=== PATIENT | male | born 1955 | race Two or more races ===

== ENCOUNTER 2024-10-28 13:09 | Inpatient (IN) | payer MEDICAID, OTHER ==
[2024-10-28] VITALS (8 sets, daily range): BP systolic 114–128; BP diastolic 69–74; PULSE 79–120; RESP 17–20; TEMP 97.8–99.7; O2SAT 89–97
[~2024-10-28] VITALS: Ht 154.9 cm; Wt 82.2 kg
--- NOTE | 2024-10-28 13:34 | ED.PDOC ---
SOB-HPI HPI Comments HPI: Poor Historian. 68y M who presents to the ED for chief complaint of cough. -per pt family member, pt has been having LLQ rib pain with associated cough for the past 2 days - pt states the cough was non-productive but contained mucus - pt was taken to urgent care earlier this AM and referred to the ED for further evaluation after urgent care staff noted pt has unstable vitals - pt in the ED , has noted temp of 103 F, heart rate of 111, and 88% 02 sat on room air, - pt otherwise denies recent sick contacts Past medical history: HTN, DM past surgical history: hernia Medications: ibuprofen Allergies: nkda Social history: denies ETOH, denies tobacco use, denies drug use REVIEW OF SYSTEMS: CONSTITUTIONAL: Denies acute: diaphoresis, chills, HEAD: Denies acute: headache, photophobia Eyes: Denies acute: Double vision, vision loss, eye pain, eye discharge. EARS: Denies acute: tinnitus, hearing loss, ear discharge, ear pain, THROAT: Denies acute: sore throat, swelling, difficulty swallowing , pain with swallowing, change in voice. NECK: Denies acute: neck pain, neck swelling, stiff neck. HEART: Denies acute : palpitations, LUNGS: Denies acute: wheezing, hemoptysis ABDOMEN: Denies acute: abdominal pain, Nausea, Vomiting, diarrhea, melena , hematemesis, hematochezia SKIN: Denies acute: rash, redness, lesions, itchiness. EXTREMITIES: Denies acute: calf pain, numbness, tingling, weakness, denies pain in extremity. Denies acute: Low back pain. Neuro: Denies acute: focal neurological deficit, motor or sensory focal neurological deficit, tremors, seizure like activity, confusion, dizziness, change in mental status, loss of bowel or bladder function, cauda equina like symptoms. : Denies acute: dysuria, hematuria, flank pain, increase in urinary frequency. PSYCH: Denies acute: hallucination, suicidal ideation, homicidal ideation. PHYSICAL EXAM: General: ----[id number]----acute distress, awake and alert. Head: normocephalic, atraumatic. Neck: supple, trachea is midline, no swelling. Throat: Normal phonation. Eyes:, no erythema, no purulent discharge, no proptosis, no icterus. Heart: regular tachycardic, no significant murmur appreciated. Lungs: no apparent respiratory distress, Able to speak in full sentences. No wheezing, no rhonchi, no crackles. No stridors Clear to auscultation bilaterally. Abdomen: non tender to palpation, non distended, soft, no guarding, no rebound, + bowel sounds. Palpation of the area of painL patient has focal left lower ribcage at the mid axillary line region tenderness to palpation. No history of fall or trauma. Neuro: Awake, Alert, oriented to name, self, situation, follows commands GCS=15. Speech is normal. Skin: no petechia, no purpura, no cyanosis, non-pale, not jaundice. Lower extremities: --no - Pitting edema no deformity, no focal swelling, no calf TTP. Makes eye contact. moves all four extremities. Face: no apparent facial droop. Ambulating in the ED independently. ED COURSE: Chief Complaint: Cough Time Seen by MD: 13:15 Reviewed notes: Nurses Notes, Allergies Information Source: Patient, Relative Mode of Arrival: Ambulatory Brought in by: family member Was a procedure done? Was a procedure done?: No Differential Dx Differential Diagnosis: Other (DDx include ACS, unstable angina, anxiety, PE, pneumothroax, neoplasm, cardiac ischemia, COPD, asthma, CHF, pleural effusion, tobacco abuse, pneumonia, hypoxia, hypercapnia, anemia., infection/sepsis., pulmonary edema. Asthma, Cardiac tamponade, infection.) X-Ray, Labs, Meds, VS Vital Signs Date Time Temp Pulse Resp B/P (MAP) Pulse Ox O2 Delivery O2 Flow Rate FiO2 10/28/24 14:24 Nasal Cannula* 2 28 10/28/24 13:49 24 94 Room Air* 0 21 10/28/24 13:40 101.3 10/28/24 13:31 117 10/28/24 13:15 101.3 111 24 118/77 (91) 88 101.3 Lab Test 10/28/24 13:41 10/28/24 13:29 10/28/24 13:26 Range/Units White Blood Count 16.0 H 4.4-10.8 10^3/uL Red Blood Count 5.58 4.5-5.90 10^6/uL Hemoglobin 16.5 13.5-17.5 g/dL Hematocrit 50.8 41.0-53.0 % Mean Corpuscular Volume 91.1 80.0-100.0 fL Mean Corpuscular Hemoglobin 29.5 28.0-32.0 pg Mean Corpuscular Hemoglobin Concent 32.4 32.0-36.0 g/dL Red Cell Distribution Width 14.6 H 11.8-14.3 % Platelet Count 174 140-450 10^3/uL Mean Platelet Volume 7.9 6.9-10.8 fL Neutrophils (%) (Auto) 87.6 H 37.0-80.0 % Lymphocytes (%) (Auto) 6.4 L 10.0-50.0 % Monocytes (%) (Auto) 5.7 0.0-12.0 % Eosinophils (%) (Auto) 0.1 0.0-7.0 % Basophils (%) (Auto) 0.2 0.0-2.0 % Neutrophils # (Auto) 14.0 H 1.6-8.6 10 ^3/uL Lymphocytes # (Auto) 1.0 0.4-5.4 10 ^3/uL Monocytes # (Auto) 0.9 0-1.3 10 ^3/uL Eosinophils # (Auto) 0 0-0.8 10 ^3/uL Basophils # (Auto) 0 0-0.2 10 ^3/uL Nucleated Red Blood Cells 0.1 % Sodium Level 134 L 136-145 mmol/L Potassium Level 4.6 3.5-5.1 mmol/L Chloride Level 103 98-107 mmol/L Carbon Dioxide Level 21 20-31 mmol/L Anion Gap 10 5-15 Blood Urea Nitrogen 36 H 9-23 mg/dL Creatinine 2.62 H 0.700-1.30 mg/dL Glomerular Filtration Rate Calc 25 >90 mL/min BUN/Creatinine Ratio 13.7 10.0-20.0 Serum Glucose 429 *H 74-106 mg/dL Lactic Acid Level 2.2 *H 0.4-2.0 mmol/L Calcium Level 9.1 8.7-10.4 mg/dL Magnesium Level 2.0 1.6-2.6 mg/dL Total Bilirubin 1.0 0.2-1.0 mg/dL Aspartate Amino Transferase (AST) 24 13-40 U/L Alanine Aminotransferase (ALT) 39 7-40 U/L Alkaline Phosphatase 93 46-116 U/L Troponin I High Sensitivity 5 </=54 ng/L B-Type Natriuretic Peptide 78.55 0-100 pg/mL Total Protein 7.1 5.7-8.2 g/dL Albumin 4.2 3.2-4.8 g/dL Urine Color Light-yellow Yellow Urine Clarity Clear Clear Urine pH 5.5 5.0-9.0 Urine Specific [place] 1.014 1.001-1.035 Urine Protein Trace H Negative Urine Ketones Negative Negative Urine Blood Trace H Negative /uL Urine Nitrite Negative Negative Urine Bilirubin Negative Negative Urine Urobilinogen Normal Negative mg/dL Urine Leukocyte Esterase Negative Negative /uL Urine RBC 1 0 - 3 /hpf Urine Microscopic WBC < 1 0-3 /HPF Urine Squamous Epithelial Cells None seen <5 /hpf Urine Bacteria Few H None Seen /hpf Urine Glucose 4+ H Normal mg/dL Influenza Type A Antigen Negative Negative Influenza Type B Antigen Negative Negative SARS-CoV-2 Antigen (Rapid) Negative NEGATIVE Current Medications Medications (Trade) Dose Ordered Sig/Roxann Route Start Time Stop Time Status Last Admin Acetaminophen (Tylenol Tablet) 650 mg ONCE ONCE PO 10/28/24 13:30 10/28/24 13:31 DC 10/28/24 13:40 Albuterol (Ventolin Medneb) 2.5 mg ONCE ONCE NEB 10/28/24 13:45 10/28/24 13:46 DC 10/28/24 13:48 Ipratropium [place] (Atrovent Medneb) 1 mg ONCE ONCE NEB 10/28/24 13:45 10/28/24 13:46 DC 10/28/24 13:[address] [address] Ph: [phone] DIAGNOSTIC IMAGING Diagnostic Imaging Report : [id number] Signed PATIENT: SO GRUBBST: [id number] UNIT: [id number] : 1955 LOC: ER ROOM / BED: / AGE / SEX: 68 / M ADM STATUS: REG ER SERVICE 1324 ORDERING PHYSICIAN: DIAZ RITTER DO PROCEDURE(s): CXRP - CHEST PORTABLE REASON: sob/fever/cough/congestion ORDER NUMBER(s): [id number], ACCESSION NUMBER(s): [id number] CHEST RADIOGRAPH Indication: sob/fever/cough/congestion Technique: Single frontal view of the chest was obtained COMPARISON: None FINDINGS: Lines and Tubes: None Lungs: Patchy hazy opacity noted in the right mid lung and left lung base. Pleura: No effusion. No pneumothorax. Cardiomediastinal contours: Unremarkable Bones: Unremarkable IMPRESSION: Mild patchy right midlung and left basilar opacities are concerning for pneum onia. ATED BY: MIMI CLINTON DO DICTATED DATE/TIME: 10/28/241403 SIGNED BY: MIMI CLINTON DO SIGNED DATE/TIME: 10/28/241403 CC: Time of 1ST Reevaluation: 14:44 Reevaluation 1ST: Improved Patient Education/Counseling: Diagnosis, Treatment Family Education/Counseling: Diagnosis, Treatment Comments Patient presented with the above HPI.---respiratory complaints---workup was initiated. patient was found with the above mentioned diagnosis. the following medications were ordered: please refer to order lists of meds and tests obtained by myself Dr. Ritter. Patient ED course and VS have been stabilized. Patient has been reassessed in the ED and remained in a stable condition. Pertinent incidental findings were discussed with the patient and/or family. Patient/family voices understanding and is agreeable with plan. Patient has been observed in the ED adequate length of time to insure improvement/stability. Escalation of care considered: Consideration of escalation to observation or admission Sepsis protocol was initiated. Patient was placed on supplemental oxygen. Patient was ADMITTED to the medicine team for further evaluation and treatment of their presentation. All the reports of any imaging studies that were ordered by myself were reviewed by myself. Departure 1 Departure Time of Disposition: 14:37 Impression: Primary Impression: Hypoxemia Additional Impressions: Respiratory distress Leukocytosis Sepsis Pneumonia Uncontrolled diabetes mellitus Hyperglycemia due to diabetes mellitus Disposition: ADMITTED INPATIENT Admit to: [facility] Condition: Guarded Discharged With: Self Critical Care Note Critical Care Time?: Yes (45 min-critical care time only) Heart Score Heart Score: Heart Score Response (Comments) Value History Slightly Suspicious 0 EKG Normal 0 Age >65 2 Risk Factors 1 or 2 risk factors 1 Troponin Normal limit 0 Total 3 I personally scribed for DIAZ RITTER DO ([email or web address]) on 10/28/24 at 13:34. Electronically submitted by Esperanza Contreras ([facility]). I personally scribed for DIAZ RITTER DO ([email or web address]) on 10/28/24 at 13:54. Electronically submitted by Esperanza Contreras ([facility] I personally scribed for DIAZ RITTER DO ([email or web address]) on 10/28/24 at 14:07. Electronically submitted by Esperanza Contreras ([facility]). DIAZ RITTER DO Oct 28, 2024 13:34
[2024-10-28] MEDS: ACETAMINOPHEN 325 MG TAB PO ONE (13:40)
[2024-10-28] MEDS: ALBUTEROL SULF 2.5 MG/0.5ML(0.5%) NEB SOLN NEB ONE (13:48)
[2024-10-28] MEDS: IPRATROPIUM BROM 0.5 MG/2.5ML INH SOL NEB ONE (13:48)
--- NOTE | 2024-10-28 13:59 | ECG ---
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
--- NOTE | 2024-10-28 14:06 | DVH ---
CHEST RADIOGRAPH Indication: sob/fever/cough/congestion Technique: Single frontal view of the chest was obtained COMPARISON: None FINDINGS: Lines and Tubes: None Lungs: Patchy hazy opacity noted in the right mid lung and left lung base. Pleura: No effusion. No pneumothorax. Cardiomediastinal contours: Unremarkable Bones: Unremarkable IMPRESSION: Mild patchy right midlung and left basilar opacities are concerning for pneumonia.
[2024-10-28 14:17] LABS: Rapid Influenza A Negative (Negative); Rapid Influenza B Negative (Negative)
[2024-10-28 14:18] LABS: COVID19 ANTIGEN SOFIA FIA NEGATIVE (NEGATIVE)
[2024-10-28 14:20] LABS: Basophils # (auto) 0 10 ^3/uL (0-0.2); Basophils % (auto) 0.2 % (0.0-2.0); Eosinophils # (auto) 0 10 ^3/uL (0-0.8); Eosinophils % (auto) 0.1 % (0.0-7.0); Hematocrit 50.8 % (41.0-53.0); Hemoglobin 16.5 g/dL (13.5-17.5); Lymphocytes % (auto) 6.4 % (10.0-50.0); Mean Corpuscular Hemoglobin 29.5 pg (28.0-32.0); Mean Corpuscular Hgb Conc. 32.4 g/dL (32.0-36.0); Mean Corpuscular Volume 91.1 fL (80.0-100.0); Monocytes # (auto) 0.9 10 ^3/uL (0-1.3); Monocytes % (auto) 5.7 % (0.0-12.0); Neutrophils % (auto) 87.6 % (37.0-80.0); Nucleated Red Blood Cells % 0.1 %; Platelet Count (auto) 174 10^3/uL (140-450); Red Blood Cells 5.58 10^6/uL (4.5-5.90); Red Cell Distribution Width 14.6 % (11.8-14.3)
[2024-10-28 14:27] LABS: Urine Bacteria FEW /hpf (None Seen); Urine Blood TRACE /uL (Negative); Urine Clarity Clear (Clear); Urine Color Light-Yellow (Yellow); Urine Protein, UAD TRACE (Negative); Urine Specific Gravity 1.014 (1.001-1.035); Urine Squamous Epithelial Cell None Seen /hpf (<5); Urine Urobilinogen Normal (Negative); Urine WBC < 1 /HPF (0-3); Urine pH 5.5 (5.0-9.0)
[2024-10-28 14:38] LABS: Alanine Aminotransferase 39 U/L (7-40); Albumin 4.2 g/dL (3.2-4.8); Alkaline Phosphatase 93 U/L (46-116); Anion Gap 10 (5-15); Aspartate Aminotransferase 24 U/L (13-40); BUN/Creatinine Ratio 13.7 (10.0-20.0); Calcium 9.1 mg/dL (8.7-10.4); Carbon Dioxide 21 mmol/L (20-31); Chloride 103 mmol/L (98-107); Potassium 4.6 mmol/L (3.5-5.1); Total Protein 7.1 g/dL (5.7-8.2)
[2024-10-28 14:46] LABS: Blood Urea Nitrogen 36 mg/dL (9-23); Glucose 429 mg/dL (74-106); Lactic Acid w/Reflex 2.2 mmol/L (0.4-2.0); Sodium 134 mmol/L (136-145)
[2024-10-28] MEDS: SODIUM CHLORIDE 0.9% 1,000 ML IV ONE ×2 (14:55)
[2024-10-28] MEDS: cefTRIAXone 1GM/50ML D5W 50 ML IV ONE (15:00)
[2024-10-28] MEDS ORDERED: ONDANSETRON HCL 4 MG/2 ML VIAL IV PRN (15:15)
[2024-10-28] MEDS ORDERED: ACETAMINOPHEN 325 MG TAB PO PRN (15:15)
[2024-10-28] MEDS ORDERED: DEXTROSE (50%) 50ML SYRG IV PRN (15:15)
--- NOTE | 2024-10-28 15:26 | DVHHP2 ---
History of Present Illness Reason for Visit: Cough and left rib pain History of Present Illness Akin Lerma is a 68-year-old male with past medical history of hypertension, diabetes, and hernia repair who presents to the ED with cough and left rib pain x3 days. Son Joe is at the bedside states that the patient just came here from [place] about a week ago. He also states that his father has a wet cough but with no sputum production. Also reports that he went to the urgent care and because of his abnormal vitals was advised to go to the ED. Patient denies any chest pain, hemoptysis, hematemesis, shortness of breath, fever, chills, lightheadedness, weakness, dizziness, nausea, abdominal pain, vomiting, or diarrhea. Patient's son does report that he has frequency to go void with no dysuria, urgency or hematuria. Patient also reports that he does not use oxygen at home however upon examination patient is currently on 5 L nasal cannula. Cardiovascular: HTN Endocrine: Diabetes Past Surgical History: Hernia Repair Family History: None Smoke: No ALCOHOL: none Drugs: None Lives: with Family Domestic Violence: Neg Review of Systems Respiratory: Cough, Other (Left rib pain) Genitourinary: Frequency Allergies: Coded Allergies: NO KNOWN ALLERGIES (Unverified , 10/28/24) Exam Vital Signs Vital Signs Date Time Temp Pulse Resp B/P (MAP) Pulse Ox O2 Delivery O2 Flow Rate FiO2 10/28/24 15:01 99.7 10/28/24 14:24 Nasal Cannula* 2 28 10/28/24 14:00 120 35 128/72 (90) 88 General Appearance: Alert, Oriented X3, Cooperative, No acute distress HEENT: Atraumatic, PERRLA, EOMI, Mucous membr. moist/pink Respiratory: Normal air movement Cardiovascular: Normal S1, Normal S2, No murmurs Abdominal: Normal bowel sounds, Soft, No tenderness, No hepatospenomegaly, No m asses Extremities: No clubbing, No cyanosis, Normal pulses Skin: No significant lesion Neuro: Normal speech, Normal tone, Sensation intact Psych/Mental Status: Mental status NL, Mood NL Labs/Xrays Labs Test 10/28/24 14:52 10/28/24 13:41 10/28/24 13:29 10/28/24 13:26 Range/Units White Blood Count 16.0 H 4.4-10.8 10^3/uL Red Blood Count 5.58 4.5-5.90 10^6/uL Hemoglobin 16.5 13.5-17.5 g/dL Hematocrit 50.8 41.0-53.0 % Mean Corpuscular Volume 91.1 80.0-100.0 fL Mean Corpuscular Hemoglobin 29.5 28.0-32.0 pg Mean Corpuscular Hemoglobin Concent 32.4 32.0-36.0 g/dL Red Cell Distribution Width 14.6 H 11.8-14.3 % Platelet Count 174 140-450 10^3/uL Mean Platelet Volume 7.9 6.9-10.8 fL Neutrophils (%) (Auto) 87.6 H 37.0-80.0 % Lymphocytes (%) (Auto) 6.4 L 10.0-50.0 % Monocytes (%) (Auto) 5.7 0.0-12.0 % Eosinophils (%) (Auto) 0.1 0.0-7.0 % Basophils (%) (Auto) 0.2 0.0-2.0 % Neutrophils # (Auto) 14.0 H 1.6-8.6 10 ^3/uL Lymphocytes # (Auto) 1.0 0.4-5.4 10 ^3/uL Monocytes # (Auto) 0.9 0-1.3 10 ^3/uL Eosinophils # (Auto) 0 0-0.8 10 ^3/uL Basophils # (Auto) 0 0-0.2 10 ^3/uL Nucleated Red Blood Cells 0.1 % Sodium Level 134 L 136-145 mmol/L Potassium Level 4.6 3.5-5.1 mmol/L Chloride Level 103 98-107 mmol/L Carbon Dioxide Level 21 20-31 mmol/L Anion Gap 10 5-15 Blood Urea Nitrogen 36 H 9-23 mg/dL Creatinine 2.62 H 0.700-1.30 mg/dL Glomerular Filtration Rate Calc 25 >90 mL/min BUN/Creatinine Ratio 13.7 10.0-20.0 Serum Glucose 429 *H 74-106 mg/dL Lactic Acid Level 2.2 *H 0.4-2.0 mmol/L Calcium Level 9.1 8.7-10.4 mg/dL Magnesium Level 2.0 1.6-2.6 mg/dL Total Bilirubin 1.0 0.2-1.0 mg/dL Aspartate Amino Transferase (AST) 24 13-40 U/L Alanine Aminotransferase (ALT) 39 7-40 U/L Alkaline Phosphatase 93 46-116 U/L B-Type Natriuretic Peptide 78.55 0-100 pg/mL Total Protein 7.1 5.7-8.2 g/dL Albumin 4.2 3.2-4.8 g/dL Urine Color Light-yellow Yellow Urine Clarity Clear Clear Urine pH 5.5 5.0-9.0 Urine Specific [place] 1.014 1.001-1.035 Urine Protein Trace H Negative Urine Ketones Negative Negative Urine Blood Trace H Negative /uL Urine Nitrite Negative Negative Urine Bilirubin Negative Negative Urine Urobilinogen Normal Negative mg/dL Urine Leukocyte Esterase Negative Negative /uL Urine RBC 1 0 - 3 /hpf Urine Microscopic WBC < 1 0-3 /HPF Urine Squamous Epithelial Cells None seen <5 /hpf Urine Bacteria Few H None Seen /hpf Urine Glucose 4+ H Normal mg/dL Influenza Type A Antigen Negative Negative Influenza Type B Antigen Negative Negative SARS-CoV-2 Antigen (Rapid) Negative NEGATIVE CHEST RADIOGRAPH Indication: sob/fever/cough/congestion Technique: Single frontal view of the chest was obtained COMPARISON: None FINDINGS: Lines and Tubes: None Lungs: Patchy hazy opacity noted in the right mid lung and left lung base. Pleura: No effusion. No pneumothorax. Cardiomediastinal contours: Unremarkable Bones: Unremarkable IMPRESSION: Mild patchy right midlung and left basilar opacities are concerning for pneumonia. Assessment/Plan Assessment/Plan Assessment Acute hypoxic respiratory failure Pneumonia with probable sepsis Leukocytosis likely due to pneumonia Pyrexia Sinus tachycardia ZEINA Diabetes type 2 uncontrolled Obesity History of hypertension Plan Admit to tele Chest x-ray noted UA NS 2 L given ED IV antibiotics-ceftriaxone Duo nebs Antiemetics EKG Troponin Blood cultures Flu negative COVID negative Mag level Lactic level BNP Hemoglobin A1c ISS and Accu-Cheks Sputum culture DVT prophylaxis-Lovenox PUD prophylaxis-famotidine, patient on series Patient's son will bring medications or list to have it reconciled Discussed plan of care with patient, patient's son, and nurse Nephro consult Counseled patient on lifestyle modifications, diet, and exercise Plan discussed with: Patient, Son My Orders Orders - KIT [employer] Procedure Category Date Status Time Ceftriaxone Ivpb PHA 10/29/24 Verified Rocephin 09:00 NS PHA 10/28/24 Verified 15:15 *[facility] CONS 10/28/24 Verified -[place] 15:01 Admit ADMIT 10/28/24 Verified 15:01 Allergies ROBERTO CARLOS 10/28/24 Verified 15:01 Code Status CODE 10/28/24 Verified 15:01 Hydrocodone-Acet PHA 10/28/24 Verified 5/325mg Tab ([place] 15:15 Date of Service: Oct 28, 2024 Billing Provider: KIT ESCOBAR Common Visit Codes: [id number] INP/OBS CARE (HIGH) KIT [employer] COUNSELOR Oct 28, 2024 15:26
[2024-10-28] MEDS ORDERED: ALBUTEROL SULF 2.5 MG/0.5ML(0.5%) NEB SOLN NEB PRN (15:30)
[2024-10-28] MEDS ORDERED: IPRATROPIUM BROM 0.5 MG/2.5ML INH SOL NEB PRN (15:30)
[2024-10-28] MEDS: SODIUM CHLORIDE 0.9% 1,000 ML IV SCH (15:40)
[2024-10-28] MEDS: ENOXAPARIN SOD 30 MG/0.3 ML SYRINGE SC ONE (15:43)
[2024-10-28] MEDS: HYDROcodone-ACET 5/325MG TAB PO PRN (16:01)
[2024-10-28] MEDS: ACCU-CHEK COMFORT CURVE STRIP VI SCH (16:47)
[2024-10-28] MEDS: InsuLIN REG 1unit/0.01ml Soln (100units/ml) SC SCH (16:47)
[2024-10-28] MEDS: ALBUTEROL SULF 2.5 MG/0.5ML(0.5%) NEB SOLN NEB SCH (19:10)
[2024-10-28] MEDS: IPRATROPIUM BROM 0.5 MG/2.5ML INH SOL NEB SCH (19:10)
[2024-10-28] MEDS ORDERED: AMLO1TAB22 PO (19:43)
[2024-10-28] MEDS ORDERED: LOSA-535 PO (19:43)
[2024-10-28] MEDS ORDERED: METF-370 PO (19:43)
[2024-10-28] MEDS: methylPREDNISolone SOD SUCC 40 MG/ML VL IV SCH (22:16)
[2024-10-29] VITALS (14 sets, daily range): BP systolic 115–137; BP diastolic 72–79; PULSE 61–113; RESP 17–19; TEMP 97.7–98.6; O2SAT 93–100
[2024-10-29 06:11] LABS: Basophils # (auto) 0.1 10 ^3/uL (0-0.2); Basophils % (auto) 0.4 % (0.0-2.0); Eosinophils # (auto) 0 10 ^3/uL (0-0.8); Hematocrit 44.9 % (41.0-53.0); Hemoglobin 14.7 g/dL (13.5-17.5); Lymphocytes # (auto) 0.6 10 ^3/uL (0.4-5.4); Lymphocytes % (auto) 3.7 % (10.0-50.0); Mean Corpuscular Hgb Conc. 32.7 g/dL (32.0-36.0); Mean Corpuscular Volume 91.9 fL (80.0-100.0); Monocytes # (auto) 0.7 10 ^3/uL (0-1.3); Monocytes % (auto) 4.5 % (0.0-12.0); Neutrophils # (auto) 14.6 10 ^3/uL (1.6-8.6); Neutrophils % (auto) 91.4 % (37.0-80.0); Platelet Count (auto) 181 10^3/uL (140-450); Red Blood Cells 4.88 10^6/uL (4.5-5.90); Red Cell Distribution Width 14.6 % (11.8-14.3); White Blood Cell 15.9 10^3/uL (4.4-10.8)
[2024-10-29 06:37] LABS: Alanine Aminotransferase 27 U/L (7-40); Albumin 3.8 g/dL (3.2-4.8); Alkaline Phosphatase 100 U/L (46-116); Anion Gap 10 (5-15); Aspartate Aminotransferase 18 U/L (13-40); BUN/Creatinine Ratio 12.8 (10.0-20.0); Bilirubin, Total 0.5 mg/dL (0.2-1.0); Calcium 8.8 mg/dL (8.7-10.4); Sodium 136 mmol/L (136-145); Total Protein 6.8 g/dL (5.7-8.2)
[2024-10-29 06:38] LABS: Blood Urea Nitrogen 28 mg/dL (9-23); Carbon Dioxide 19 mmol/L (20-31); Chloride 107 mmol/L (98-107); Glucose 358 mg/dL (74-106); Potassium 5.1 mmol/L (3.5-5.1)
[2024-10-29] MEDS: cefTRIAXone 1GM/50ML D5W 50 ML IV SCH (08:29)
[2024-10-29] MEDS: ENOXAPARIN SOD 30 MG/0.3 ML SYRINGE SC SCH (10:31)
[2024-10-29] MEDS: FAMOTIDINE (10MG/ML) 2ML VL IV SCH (10:32)
--- NOTE | 2024-10-29 14:58 | DVHPN2 ---
Subjective Some cough. Feels better Reviewed: Care Plan, H&P, Labs, Medications, Previous Orders, Radiology Changes from previous H/P or p: No Changes Respiratory: Cough Objective Vitals Vital Signs Date Time Temp Pulse Resp B/P (MAP) Pulse Ox O2 Delivery O2 Flow Rate FiO2 10/29/24 12:40 98.1 88 19 122/72 (89) 95 98.1 10/29/24 10:22 Nasal Cannula 4.0 10/29/24 10:22 36 Intake/Output Intake and Output 10/29/24 07:00 Intake Total 3450 ml Balance 3450 ml Intake Oral 1200 ml IV Total 2250 ml # Voids 3 General Appearance: Alert, Oriented X3, Cooperative, No acute distress HEENT: Atraumatic Lungs: Other (Few crackles bilateral lungs with good air entry) Cardiovascular: Regular rate Abdomen: Normal bowel sounds, Soft, No tenderness Medications Current Medications Medications Dose Ordered Sig/Roxann Route Start Time Stop Time Status Last Admin Dose Admin Ceftriaxone Sodium 50 ml @ 100 mls/hr DAILY@09 IV 10/29/24 09:00 10/29/24 08:29 100 MLS/HR Sodium Chloride 1,000 ml @ 100 mls/hr Q10H IV 10/28/24 15:15 10/29/24 10:31 100 MLS/HR Acetaminophen/ Hydrocodone Bitart 1 tab Q4HP PRN PO 10/28/24 15:15 10/28/24 20:06 1 TAB Ondansetron HCl 4 mg Q4HP PRN IV 10/28/24 15:15 Enoxaparin Sodium 30 mg DAILY SC 10/29/24 10:00 10/29/24 10:31 30 MG Acetaminophen 650 mg Q6HP PRN PO 10/28/24 15:15 Diagnostic Test (Pha) 1 strip ACHS 10/28/24 17:00 10/29/24 11:54 1 STRIP Insulin Human Regular ACHS SC 10/28/24 17:00 10/29/24 11:58 10 UNITS Dextrose 50 ml UD PRN IV 10/28/24 15:15 Albuterol 2.5 mg Q4HWA NEB 10/28/24 18:00 10/28/24 22:23 2.5 MG Albuterol 2.5 mg Q2HPRN PRN NEB 10/28/24 15:30 Ipratropium [place] 0.5 mg Q4HWA NEB 10/28/24 18:00 10/28/24 22:23 0.5 MG Ipratropium [place] 0.5 mg Q2HPRN PRN NEB 10/28/24 15:30 Methylprednisolone Sodium Succinate 40 mg Q8HR IV 10/28/24 22:00 10/29/24 14:39 40 MG Famotidine 20 mg DAILY IV 10/29/24 10:00 10/29/24 10:32 20 MG Laboratory Results Laboratory Tests 10/29/24 05:28 Chemistry Test 10/29/24 05:28 Albumin 3.8 g/dL (3.2-4.8) Calcium Level 8.8 mg/dL (8.7-10.4) Total Protein 6.8 g/dL (5.7-8.2) LFT Test 10/29/24 05:28 Alanine Aminotransferase (ALT) 27 U/L (7-40) Alkaline Phosphatase 100 U/L (46-116) Aspartate Amino Transferase (AST) 18 U/L (13-40) Total Bilirubin 0.5 mg/dL (0.2-1.0) Urinalysis Test 10/28/24 13:29 Urine Color Light-yellow (Yellow) Urine Clarity Clear (Clear) Urine pH 5.5 (5.0-9.0) Urine Specific [place] 1.014 (1.001-1.035) Urine Protein Trace (Negative) H Urine Ketones Negative (Negative) Urine Blood Trace /uL (Negative) H Urine Nitrite Negative (Negative) Urine Bilirubin Negative (Negative) Urine Urobilinogen Normal mg/dL (Negative) Urine Leukocyte Esterase Negative /uL (Negative) Urine RBC 1 /hpf (0 - 3) Urine Microscopic WBC < 1 /HPF (0-3) Urine Squamous Epithelial Cells None seen /hpf (<5) Urine Bacteria Few /hpf (None Seen) H Urine Glucose 4+ mg/dL (Normal) H Microbiology Microbiology Date/Time Source Procedure Growth Status 10/28/24 13:47 Blood Blood Culture - Preliminary NO GROWTH AFTER 24 HOURS OF INCUBATION. Resulted Assessment/Plan Assessment/Plan Bilateral pneumonia Leukocytosis sepsis and possible bacteremia with with sepsis/blood culture growing Gram-positive cocci in clusters Hyperglycemia Diabetes/uncontrolled Hypertension Acute kidney injury atop chronic kidney disease Morbid obesity History of hernia repair Plan: Add Zyvox. Awaiting culture. Repeat culture. Further plan per orders Plan discussed with: Patient Date of Service: Oct 29, 2024 Billing Provider: HANNAH YAO MD Common Visit Codes: [id number] INP/OBS CARE(HIGH) HANNAH YAO MD Oct 29, 2024 14:58
[2024-10-29] MEDS: LINEZOLID 600MG/300ML 300 ML IV SCH (16:32)
--- NOTE | 2024-10-29 16:33 | DVHINCON2 ---
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 Denies knowing Chronic kidney disease history Patient is currently being treated for pneumonia Past Medical History As per HPI Past Surgical History As per HPI Allergies: Coded Allergies: NO KNOWN ALLERGIES (Unverified , 10/28/24) Home Meds Reported Medications Amlodipine Besylate (Amlodipine Besylate) 5 Mg Tab, 5 MG PO BID for BLOOD PRESSURE, TAB 10/28/24 Losartan Potassium (Losartan Potassium) 100 Mg Tab, 100 MG PO BID for BLOOD PRESSURE, TAB 10/28/24 Metformin Hydrochloride (Metformin Hcl) 500 Mg Tab, 500 MG PO DAILY for DIABETES, TAB 10/28/24 Current Medications Current Medications Medications (Trade) Dose Ordered Sig/Roxann Route PRN Reason Start Time Stop Time Status Last Admin Ceftriaxone Sodium 50 ml @ 100 mls/hr DAILY@09 IV 10/29/24 09:00 10/29/24 08:29 Enoxaparin Sodium (Lovenox) 30 mg DAILY SC 10/29/24 10:00 10/29/24 10:31 Diagnostic Test (Pha) (Accu-Chek Comfort Curve T) 1 strip ACHS 10/28/24 17:00 10/29/24 11:54 Insulin Human Regular (InsuLIN R) ACHS SC 10/28/24 17:00 10/29/24 11:58 Albuterol (Ventolin Medneb) 2.5 mg Q4HWA NEB 10/28/24 18:00 10/28/24 22:23 Ipratropium [place] (Atrovent Medneb) 0.5 mg Q4HWA NEB 10/28/24 18:00 10/28/24 22:23 Methylprednisolone Sodium Succinate (Solu Medrol) 40 mg Q8HR IV 10/28/24 22:00 10/29/24 14:39 Famotidine (Pepcid Injection) 20 mg DAILY IV 10/29/24 10:00 10/29/24 10:32 Linezolid 300 ml @ 150 mls/hr Q12HR IV 10/29/24 15:00 Family History: Patient reports no known family medical history. Review of Systems As documented in HPI H&P Exam Vital Signs/I&O Vital Sign Date Time Temp Pulse Resp B/P (MAP) Pulse Ox O2 Delivery O2 Flow Rate FiO2 10/29/24 12:40 98.1 88 19 122/72 (89) 95 98.1 10/29/24 10:22 Nasal Cannula 4.0 10/29/24 10:22 36 Intake and Output 10/28/24 10/29/24 19:00 07:00 Intake Total 2250 ml 1200 ml Balance 2250 ml 1200 ml Intake Oral 1200 ml IV Total 2250 ml # Voids 3 Physical Exam General-not in any distress HEENT-normocephalic, no icterus, no pallor, neck supple Respiratory-fair air entry bilateral, [id number] heard, no murmurs appreciated Abdominal-soft, nontender, nondistended Musculoskeletal-no pedal edema, no calf tenderness Genitourinary-deferred Neuro-awake alert oriented x3, Psychiatric-not agitated, cooperative, Labs/Diagnostic Data Labs/Diagnostic Data Laboratory Tests Test 10/29/24 11:44 10/29/24 06:42 10/29/24 05:42 10/29/24 05:28 Range/Units POC Glucose 377 H 365 H 381 H 70-106 mg/dl White Blood Count 15.9 H 4.4-10.8 10^3/uL Red Blood Count 4.88 4.5-5.90 10^6/uL Hemoglobin 14.7 13.5-17.5 g/dL Hematocrit 44.9 # 41.0-53.0 % Mean Corpuscular Volume 91.9 80.0-100.0 fL Mean Corpuscular Hemoglobin 30.0 28.0-32.0 pg Mean Corpuscular Hemoglobin Concent 32.7 32.0-36.0 g/dL Red Cell Distribution Width 14.6 H 11.8-14.3 % Platelet Count 181 140-450 10^3/uL Mean Platelet Volume 7.9 6.9-10.8 fL Neutrophils (%) (Auto) 91.4 H 37.0-80.0 % Lymphocytes (%) (Auto) 3.7 L 10.0-50.0 % Monocytes (%) (Auto) 4.5 0.0-12.0 % Eosinophils (%) (Auto) 0.0 0.0-7.0 % Basophils (%) (Auto) 0.4 0.0-2.0 % Neutrophils # (Auto) 14.6 H 1.6-8.6 10 ^3/uL Lymphocytes # (Auto) 0.6 0.4-5.4 10 ^3/uL Monocytes # (Auto) 0.7 0-1.3 10 ^3/uL Eosinophils # (Auto) 0 0-0.8 10 ^3/uL Basophils # (Auto) 0.1 0-0.2 10 ^3/uL Nucleated Red Blood Cells 0.0 % Sodium Level 136 136-145 mmol/L Potassium Level 5.1 3.5-5.1 mmol/L Chloride Level 107 98-107 mmol/L Carbon Dioxide Level 19 L 20-31 mmol/L Anion Gap 10 5-15 Blood Urea Nitrogen 28 H 9-23 mg/dL Creatinine 2.18 H 0.700-1.30 mg/dL Glomerular Filtration Rate Calc 32 >90 mL/min BUN/Creatinine Ratio 12.8 10.0-20.0 Serum Glucose 358 H 74-106 mg/dL Calcium Level 8.8 8.7-10.4 mg/dL Total Bilirubin 0.5 0.2-1.0 mg/dL Aspartate Amino Transferase (AST) 18 13-40 U/L Alanine Aminotransferase (ALT) 27 7-40 U/L Alkaline Phosphatase 100 46-116 U/L Creatine Kinase 129 46-171 U/L Total Protein 6.8 5.7-8.2 g/dL Albumin 3.8 3.2-4.8 g/dL Test 10/28/24 22:23 10/28/24 16:48 10/28/24 16:45 10/28/24 14:52 Range/Units POC Glucose 342 H 301 H 70-106 mg/dl Lactic Acid Level 1.7 0.4-2.0 mmol/L Troponin I High Sensitivity 5 6 </=54 ng/L Test 10/28/24 13:41 10/28/24 13:29 10/28/24 13:26 Range/Units White Blood Count 16.0 H 4.4-10.8 10^3/uL Red Blood Count 5.58 4.5-5.90 10^6/uL Hemoglobin 16.5 13.5-17.5 g/dL Hematocrit 50.8 41.0-53.0 % Mean Corpuscular Volume 91.1 80.0-100.0 fL Mean Corpuscular Hemoglobin 29.5 28.0-32.0 pg Mean Corpuscular Hemoglobin Concent 32.4 32.0-36.0 g/dL Red Cell Distribution Width 14.6 H 11.8-14.3 % Platelet Count 174 140-450 10^3/uL Mean Platelet Volume 7.9 6.9-10.8 fL Neutrophils (%) (Auto) 87.6 H 37.0-80.0 % Lymphocytes (%) (Auto) 6.4 L 10.0-50.0 % Monocytes (%) (Auto) 5.7 0.0-12.0 % Eosinophils (%) (Auto) 0.1 0.0-7.0 % Basophils (%) (Auto) 0.2 0.0-2.0 % Neutrophils # (Auto) 14.0 H 1.6-8.6 10 ^3/uL Lymphocytes # (Auto) 1.0 0.4-5.4 10 ^3/uL Monocytes # (Auto) 0.9 0-1.3 10 ^3/uL Eosinophils # (Auto) 0 0-0.8 10 ^3/uL Basophils # (Auto) 0 0-0.2 10 ^3/uL Nucleated Red Blood Cells 0.1 % Sodium Level 134 L 136-145 mmol/L Potassium Level 4.6 3.5-5.1 mmol/L Chloride Level 103 98-107 mmol/L Carbon Dioxide Level 21 20-31 mmol/L Anion Gap 10 5-15 Blood Urea Nitrogen 36 H 9-23 mg/dL Creatinine 2.62 H 0.700-1.30 mg/dL Glomerular Filtration Rate Calc 25 >90 mL/min BUN/Creatinine Ratio 13.7 10.0-20.0 Serum Glucose 429 *H 74-106 mg/dL Hemoglobin A1c 7.8 H <5.7 % A1C Lactic Acid Level 2.2 *H 0.4-2.0 mmol/L Calcium Level 9.1 8.7-10.4 mg/dL Magnesium Level 2.0 1.6-2.6 mg/dL Total Bilirubin 1.0 0.2-1.0 mg/dL Aspartate Amino Transferase (AST) 24 13-40 U/L Alanine Aminotransferase (ALT) 39 7-40 U/L Alkaline Phosphatase 93 46-116 U/L Troponin I High Sensitivity 5 </=54 ng/L B-Type Natriuretic Peptide 78.55 0-100 pg/mL Total Protein 7.1 5.7-8.2 g/dL Albumin 4.2 3.2-4.8 g/dL Urine Color Light-yellow Yellow Urine Clarity Clear Clear Urine pH 5.5 5.0-9.0 Urine Specific [place] 1.014 1.001-1.035 Urine Protein Trace H Negative Urine Ketones Negative Negative Urine Blood Trace H Negative /uL Urine Nitrite Negative Negative Urine Bilirubin Negative Negative Urine Urobilinogen Normal Negative mg/dL Urine Leukocyte Esterase Negative Negative /uL Urine RBC 1 0 - 3 /hpf Urine Microscopic WBC < 1 0-3 /HPF Urine Squamous Epithelial Cells None seen <5 /hpf Urine Bacteria Few H None Seen /hpf Urine Glucose 4+ H Normal mg/dL Influenza Type A Antigen Negative Negative Influenza Type B Antigen Negative Negative SARS-CoV-2 Antigen (Rapid) Negative NEGATIVE Assessment Acute kidney injury hemodynamic mediated etiology in the setting of sepsis--unknown baseline Acute hypoxic respiratory failure secondary to pneumonia Sepsis secondary to pneumonia/bacteremia Diabetes uncontrolled Hypertension Recommendations Patient received IV fluids since admission reduce IV fluid rate patient on 5 L nasal cannula Treat sepsis antibiotics per primary Kidney ultrasound Urine workup as ordered Plan discussed with: Patient, Spouse, Daughter KIMBERLEY BAIRD MD Oct 29, 2024 16:33
[2024-10-29] MEDS: SODIUM CHLORIDE 0.9% 1,000 ML IV SCH (16:45)
--- NOTE | 2024-10-29 17:37 | DVH ---
INDICATION: ZEINA TECHNIQUE: Multiple real-time sonographic images of the kidneys and bladder were obtained. COMPARISON: None FINDINGS: The right kidney measures 0.1 cm in length, which is normal in size. There is normal echoge nicity of the right kidney. Decreased cortical increased echogenicity. No hydronephrosis. There is an anechoic cortical lesion right kidney measuring 2 x 2.2 x 1.9 cm. The left kidney measures 12 cm in length, which is normal in size. There is cortical thinning and inc reased echogenicity of the renal cortex. There is an anechoic lesion in the left kidney measuring 6.3 x 5.9 x 5.6 cm.. No hydronephrosis. No large intraluminal masses are seen in the bladder. Prior to voiding the bladder volume measures vo lume 445 mL cc. Prostate is 49 mL prostate volume. IMPRESSION: 1. Right kidney measures 12.1 cm. Left kidney measures 12 cm. 2. Bilateral renal cysts 3. Bilateral increased cortical echogenicity and cortical thinning suggesting chronic renal disease 4. Prostate has a 49 mL volume. 5. Bladder volume is 445 mL patient had no urge to void. Bladder wall is 1.1 mm
[2024-10-30] VITALS (14 sets, daily range): BP systolic 104–128; BP diastolic 66–83; PULSE 82–103; RESP 16–32; TEMP 97.5–98.8; O2SAT 93–99
[2024-10-30] MEDS: InsuLIN REG 1unit/0.01ml Soln (100units/ml) SC ONE (01:04)
[2024-10-30] MEDS: InsuLIN REG 1unit/0.01ml Soln (100units/ml) SC SCH ×2 (06:07→21:42)
--- NOTE | 2024-10-30 06:23 | DVH ---
EXAM: XR Chest, 1 View CLINICAL INDICATION: fu TECHNIQUE: Frontal view of the chest. COMPARISON: XY CHEST PORTABLE on DOS: 10/28/24 FINDINGS: LUNGS AND PLEURAL SPACES: Pulmonary congestion and edema. Pneumonia cannot be excluded. Left basil ar atelectasis or pneumonia. No pneumothorax. HEART: Unremarkable. No cardiomegaly. MEDIASTINUM: Unremarkable. Normal mediastinal contour. BONES/JOINTS: Unremarkable. No acute fracture. OTHER FINDINGS: . . IMPRESSION: 1. Pulmonary congestion and edema. Pneumonia cannot be excluded. 2. Left basilar atelectasis or pneumonia.
[2024-10-30 07:15] LABS: Potassium 4.2 mmol/L (3.5-5.1)
[2024-10-30 07:16] LABS: Anion Gap 9 (5-15)
[2024-10-30 07:17] LABS: Calcium 9.4 mg/dL (8.7-10.4)
[2024-10-30 07:21] LABS: BUN/Creatinine Ratio 17.1 (10.0-20.0)
[2024-10-30 07:24] LABS: Blood Urea Nitrogen 35 mg/dL (9-23); Carbon Dioxide 19 mmol/L (20-31); Chloride 107 mmol/L (98-107); Glucose 392 mg/dL (74-106); Sodium 135 mmol/L (136-145)
[2024-10-30 07:25] LABS: Basophils # (auto) 0 10 ^3/uL (0-0.2); Basophils % (auto) 0.1 % (0.0-2.0); Eosinophils # (auto) 0 10 ^3/uL (0-0.8); Lymphocytes # (auto) 0.9 10 ^3/uL (0.4-5.4); Lymphocytes % (auto) 7.3 % (10.0-50.0); Mean Corpuscular Hgb Conc. 34.1 g/dL (32.0-36.0); Monocytes # (auto) 0.8 10 ^3/uL (0-1.3); Monocytes % (auto) 6.6 % (0.0-12.0); Neutrophils # (auto) 10.1 10 ^3/uL (1.6-8.6); Nucleated Red Blood Cells % 0.1 %; Platelet Count (auto) 219 10^3/uL (140-450); Red Blood Cells 4.84 10^6/uL (4.5-5.90); Red Cell Distribution Width 14.4 % (11.8-14.3); White Blood Cell 11.7 10^3/uL (4.4-10.8)
[2024-10-30] MEDS: INSULIN LANTUS (GLARGINE) 1 /0.01ml (100units/ml) SC SCH (10:01)
--- NOTE | 2024-10-30 12:19 | DVHPN2 ---
Progress Note Date Seen: Oct 30, 2024 Medical Necessity Reason Pt with a Central, PICC or Fol: No Subjective Patient reports: No new complaints Other Systems: Patient seen and examined by myself today in follow-up, at the bedside Objective vital signs Vital Sign Date Time Temp Pulse Resp B/P (MAP) Pulse Ox O2 Delivery O2 Flow Rate FiO2 10/30/24 09:38 93 18 99 10/30/24 09:33 Nasal Cannula* 3 32 10/30/24 09:00 97.5 118/66 (83) 97.5 Total Intake and Output 10/29/24 10/29/24 10/30/24 15:00 23:00 07:00 Intake Total 50 ml 950 ml 1040 ml Balance 50 ml 950 ml 1040 ml medications Current Medications Medications Dose Ordered Sig/Roxann Route Start Time Stop Time Status Last Admin Dose Admin Ceftriaxone Sodium 50 ml @ 100 mls/hr DAILY@09 IV 10/29/24 09:00 10/30/24 09:58 100 MLS/HR Acetaminophen/ Hydrocodone Bitart 1 tab Q4HP PRN PO 10/28/24 15:15 10/29/24 23:18 1 TAB Ondansetron HCl 4 mg Q4HP PRN IV 10/28/24 15:15 Enoxaparin Sodium 30 mg DAILY SC 10/29/24 10:00 10/30/24 10:00 30 MG Acetaminophen 650 mg Q6HP PRN PO 10/28/24 15:15 Diagnostic Test (Pha) 1 strip ACHS 10/28/24 17:00 10/30/24 12:04 1 STRIP Dextrose 50 ml UD PRN IV 10/28/24 15:15 Albuterol 2.5 mg Q4HWA NEB 10/28/24 18:00 10/30/24 09:34 2.5 MG Albuterol 2.5 mg Q2HPRN PRN NEB 10/28/24 15:30 Ipratropium [place] 0.5 mg Q4HWA NEB 10/28/24 18:00 10/30/24 09:34 0.5 MG Ipratropium [place] 0.5 mg Q2HPRN PRN NEB 10/28/24 15:30 Methylprednisolone Sodium Succinate 40 mg Q8HR IV 10/28/24 22:00 10/30/24 06:17 40 MG Famotidine 20 mg DAILY IV 10/29/24 10:00 10/30/24 09:59 20 MG Linezolid 300 ml @ 150 mls/hr Q12HR IV 10/29/24 15:00 10/30/24 10:01 150 MLS/HR Sodium Chloride 1,000 ml @ 50 mls/hr Q20H IV 10/29/24 16:30 10/30/24 12:06 50 MLS/HR Insulin Human Regular AC SC 10/30/24 07:00 10/30/24 12:04 20 UNITS Insulin Human Regular HS SC 10/30/24 22:00 Insulin Glargine 15 units DAILY@1000 SC 10/30/24 10:00 10/30/24 10:01 15 UNITS Examination: LUNGS:Normal, CVS:Normal, MSK:Normal laboratory and microbiology Laboratory Tests 10/30/24 06:16 Test 10/30/24 06:16 Range/Units Serum Glucose 392 H 74-106 mg/dL Microbiology Date/Time Source Procedure Growth Status 10/28/24 13:47 Blood Blood Culture - Preliminary NO GROWTH AFTER 24 HOURS OF INCUBATION. Resulted Problem List/Assessment/Plan Problem List/Assessment/Plan Acute kidney injury superimposed Chronic Kidney Disease secondary hemodynamic mediated Acute hypoxic respiratory failure Pneumonia Sepsis secondary to pneumonia/bacteremia Diabetes uncontrolled Hypertension Vitamin-D deficiency Recommendations Kidney function slightly improved No urine output charted Strict I&Os Kidney ultrasound reported bilateral echogenic kidney Insulin sliding scale Blood pressure control We will continue to follow Plan discussed with: Patient, Spouse My Orders My Orders Orders - BONY MCGOWAN MD Procedure Category Date Status Time Urine Sodium LAB 10/30/24 Logged 09:53 Urine LAB 10/30/24 Logged Protein/Creatinine 09:53 BONY MCGOWAN MD Oct 30, 2024 12:19
--- NOTE | 2024-10-30 20:51 | DVHPN2 ---
Subjective feeling less sob and now on RA Reviewed: Care Plan, H&P, Labs, Medications, Previous Orders, Radiology Changes from previous H/P or p: No Changes Respiratory: Cough Objective Vitals Vital Signs Date Time Temp Pulse Resp B/P (MAP) Pulse Ox O2 Delivery O2 Flow Rate FiO2 10/30/24 17:00 97.9 95 18 128/80 (96) 94 97.9 10/30/24 09:33 Nasal Cannula* 3 32 Intake/Output Intake and Output 10/30/24 07:00 Intake Total 2040 ml Balance 2040 ml Intake Oral 1990 ml IV Total 50 ml # Voids 5 General Appearance: Alert, Oriented X3, Cooperative, No acute distress HEENT: Atraumatic Lungs: Other (Few crackles bilateral lungs with good air entry) Cardiovascular: Regular rate Abdomen: Normal bowel sounds, Soft, No tenderness Medications Current Medications Medications Dose Ordered Sig/Roxann Route Start Time Stop Time Status Last Admin Dose Admin Ceftriaxone Sodium 50 ml @ 100 mls/hr DAILY@09 IV 10/29/24 09:00 10/30/24 09:58 100 MLS/HR Acetaminophen/ Hydrocodone Bitart 1 tab Q4HP PRN PO 10/28/24 15:15 10/29/24 23:18 1 TAB Ondansetron HCl 4 mg Q4HP PRN IV 10/28/24 15:15 Enoxaparin Sodium 30 mg DAILY SC 10/29/24 10:00 10/30/24 10:00 30 MG Acetaminophen 650 mg Q6HP PRN PO 10/28/24 15:15 Diagnostic Test (Pha) 1 strip ACHS 10/28/24 17:00 10/30/24 16:55 1 STRIP Dextrose 50 ml UD PRN IV 10/28/24 15:15 Albuterol 2.5 mg Q4HWA NEB 10/28/24 18:00 10/30/24 09:34 2.5 MG Albuterol 2.5 mg Q2HPRN PRN NEB 10/28/24 15:30 Ipratropium [place] 0.5 mg Q4HWA NEB 10/28/24 18:00 10/30/24 09:34 0.5 MG Ipratropium [place] 0.5 mg Q2HPRN PRN NEB 10/28/24 15:30 Methylprednisolone Sodium Succinate 40 mg Q8HR IV 10/28/24 22:00 10/30/24 13:57 40 MG Famotidine 20 mg DAILY IV 10/29/24 10:00 10/30/24 09:59 20 MG Linezolid 300 ml @ 150 mls/hr Q12HR IV 10/29/24 15:00 10/30/24 10:01 150 MLS/HR Sodium Chloride 1,000 ml @ 50 mls/hr Q20H IV 10/29/24 16:30 10/30/24 12:06 50 MLS/HR Insulin Human Regular AC SC 10/30/24 07:00 10/30/24 16:55 20 UNITS Insulin Human Regular HS SC 10/30/24 22:00 Insulin Glargine 15 units DAILY@1000 SC 10/30/24 10:00 10/30/24 10:01 15 UNITS Laboratory Results Laboratory Tests 10/30/24 06:16 Chemistry Test 10/30/24 06:16 Calcium Level 9.4 mg/dL (8.7-10.4) Phosphorus Level 2.1 mg/dL (2.4-5.1) L Urinalysis Test 10/28/24 13:29 Urine Color Light-yellow (Yellow) Urine Clarity Clear (Clear) Urine pH 5.5 (5.0-9.0) Urine Specific [place] 1.014 (1.001-1.035) Urine Protein Trace (Negative) H Urine Ketones Negative (Negative) Urine Blood Trace /uL (Negative) H Urine Nitrite Negative (Negative) Urine Bilirubin Negative (Negative) Urine Urobilinogen Normal mg/dL (Negative) Urine Leukocyte Esterase Negative /uL (Negative) Urine RBC 1 /hpf (0 - 3) Urine Microscopic WBC < 1 /HPF (0-3) Urine Squamous Epithelial Cells None seen /hpf (<5) Urine Bacteria Few /hpf (None Seen) H Urine Glucose 4+ mg/dL (Normal) H Microbiology Microbiology Date/Time Source Procedure Growth Status 10/29/24 15:29 Blood Blood Culture - Preliminary NO GROWTH AFTER 24 HOURS OF INCUBATION. Resulted Assessment/Plan Assessment/Plan Bilateral pneumonia Leukocytosis sepsis and possible bacteremia with with sepsis/blood culture growing Gram-positive cocci in clusters Hyperglycemia Diabetes/uncontrolled Hypertension Acute kidney injury on chronic kidney disease Morbid obesity History of hernia repair Plan: Add Zyvox. Awaiting culture. Repeat culture. Further plan per orders Creat 2.6>2 Monitor BMP Plan discussed with: Patient Date of Service: Oct 30, 2024 Billing Provider: TAWNY SHABAZZ MD Common Visit Codes: [id number] INP/OBS CARE(HIGH) TAWNY SHABAZZ MD Oct 30, 2024 20:51
[2024-10-31] VITALS (20 sets, daily range): BP systolic 124–136; BP diastolic 72–88; PULSE 48–101; RESP 16–28; TEMP 97.5–98.5; O2SAT 90–97
[2024-10-31 08:25] LABS: Anion Gap 10 (5-15); Calcium 9.6 mg/dL (8.7-10.4)
[2024-10-31 08:26] LABS: Carbon Dioxide 20 mmol/L (20-31); Chloride 106 mmol/L (98-107); Potassium 3.9 mmol/L (3.5-5.1); Sodium 136 mmol/L (136-145)
[2024-10-31 08:30] LABS: BUN/Creatinine Ratio 20.8 (10.0-20.0); Blood Urea Nitrogen 38 mg/dL (9-23); Glucose 271 mg/dL (74-106)
--- NOTE | 2024-10-31 09:06 | MEDREC ---
[facility] ASP Intervention Section I [facility] ASP Intervention: Deescalate AB based on CS (PLEASE CONSIDER DE-ESCALATION BASED ON CULTURE RESULTS ) BRYANT GAUTAM PHARMACIST Oct 31, 2024 09:06
--- NOTE | 2024-10-31 10:17 | DVHPN2 ---
Progress Note Date Seen: Oct 31, 2024 Medical Necessity Reason Pt with a Central, PICC or Fol: No Subjective Patient reports: No new complaints Other Systems: Patient seen and examined by myself today in follow-up Objective vital signs Vital Sign Date Time Temp Pulse Resp B/P (MAP) Pulse Ox O2 Delivery O2 Flow Rate FiO2 10/31/24 09:08 87 16 97 10/31/24 09:00 Nasal Cannula* 3 32 10/31/24 05:03 97.5 125/72 (89) 97.5 Total Intake and Output 10/30/24 10/30/24 10/31/24 15:00 23:00 07:00 Intake Total 1350 ml 480 ml 600 ml Output Total 480 ml Balance 1350 ml 480 ml 120 ml medications Current Medications Medications Dose Ordered Sig/Roxann Route Start Time Stop Time Status Last Admin Dose Admin Ceftriaxone Sodium 50 ml @ 100 mls/hr DAILY@09 IV 10/29/24 09:00 10/31/24 09:26 100 MLS/HR Acetaminophen/ Hydrocodone Bitart 1 tab Q4HP PRN PO 10/28/24 15:15 10/29/24 23:18 1 TAB Ondansetron HCl 4 mg Q4HP PRN IV 10/28/24 15:15 Enoxaparin Sodium 30 mg DAILY SC 10/29/24 10:00 10/31/24 09:27 30 MG Acetaminophen 650 mg Q6HP PRN PO 10/28/24 15:15 Diagnostic Test (Pha) 1 strip ACHS 10/28/24 17:00 10/31/24 05:44 1 STRIP Dextrose 50 ml UD PRN IV 10/28/24 15:15 Albuterol 2.5 mg Q4HWA NEB 10/28/24 18:00 10/31/24 08:59 2.5 MG Albuterol 2.5 mg Q2HPRN PRN NEB 10/28/24 15:30 Ipratropium [place] 0.5 mg Q4HWA NEB 10/28/24 18:00 10/31/24 08:59 0.5 MG Ipratropium [place] 0.5 mg Q2HPRN PRN NEB 10/28/24 15:30 Methylprednisolone Sodium Succinate 40 mg Q8HR IV 10/28/24 22:00 10/31/24 05:52 40 MG Famotidine 20 mg DAILY IV 10/29/24 10:00 10/31/24 09:26 20 MG Linezolid 300 ml @ 150 mls/hr Q12HR IV 10/29/24 15:00 10/30/24 21:34 150 MLS/HR Sodium Chloride 1,000 ml @ 50 mls/hr Q20H IV 10/29/24 16:30 10/30/24 12:06 50 MLS/HR Insulin Human Regular AC SC 10/30/24 07:00 10/31/24 05:44 12 UNITS Insulin Human Regular HS SC 10/30/24 22:00 10/30/24 21:42 8 UNITS Insulin Glargine 15 units DAILY@1000 SC 10/30/24 10:00 10/31/24 09:25 15 UNITS Examination: LUNGS:Normal, CVS:Normal, MSK:Normal laboratory and microbiology Laboratory Tests 10/31/24 06:39 10/30/24 06:16 Test 10/31/24 06:39 Range/Units Serum Glucose 271 #H 74-106 mg/dL Microbiology Date/Time Source Procedure Growth Status 10/29/24 15:29 Blood Blood Culture - Preliminary NO GROWTH AFTER 24 HOURS OF INCUBATION. Resulted Problem List/Assessment/Plan Problem List/Assessment/Plan Acute kidney injury superimposed Chronic Kidney Disease secondary hemodynamic mediated Acute hypoxic respiratory failure Pneumonia Sepsis secondary to pneumonia/bacteremia Diabetes uncontrolled Hypertension Vitamin-D deficiency Recommendations Kidney function continues to improve Increased urine output Strict I&Os Kidney ultrasound reported bilateral echogenic kidney Insulin sliding scale Blood pressure control We will continue to follow Plan discussed with: Patient BONY MCGOWAN MD Oct 31, 2024 10:17
--- NOTE | 2024-10-31 19:25 | DVHPN2 ---
Subjective feeling less sob and now on RA Reviewed: Care Plan, H&P, Labs, Medications, Previous Orders, Radiology Changes from previous H/P or p: No Changes Respiratory: Cough Objective Vitals Vital Signs Date Time Temp Pulse Resp B/P (MAP) Pulse Ox O2 Delivery O2 Flow Rate FiO2 10/31/24 19:13 93 Nasal Cannula 2.0 10/31/24 19:13 28 10/31/24 19:13 90 18 10/31/24 16:49 97.9 128/83 (98) 97.9 Intake/Output Intake and Output 10/31/24 07:00 Intake Total 2430 ml Output Total 480 ml Balance 1950 ml Intake Oral 780 ml IV Total 1650 ml Output Urine Total 480 ml # Voids 4 # Bowel Movements 1 General Appearance: Alert, Oriented X3, Cooperative, No acute distress HEENT: Atraumatic Lungs: Other (Few crackles bilateral lungs with good air entry) Cardiovascular: Regular rate Abdomen: Normal bowel sounds, Soft, No tenderness Medications Current Medications Medications Dose Ordered Sig/Roxann Route Start Time Stop Time Status Last Admin Dose Admin Ceftriaxone Sodium 50 ml @ 100 mls/hr DAILY@09 IV 10/29/24 09:00 10/31/24 09:26 100 MLS/HR Acetaminophen/ Hydrocodone Bitart 1 tab Q4HP PRN PO 10/28/24 15:15 10/29/24 23:18 1 TAB Ondansetron HCl 4 mg Q4HP PRN IV 10/28/24 15:15 Enoxaparin Sodium 30 mg DAILY SC 10/29/24 10:00 10/31/24 09:27 30 MG Acetaminophen 650 mg Q6HP PRN PO 10/28/24 15:15 Diagnostic Test (Pha) 1 strip ACHS 10/28/24 17:00 10/31/24 16:58 1 STRIP Dextrose 50 ml UD PRN IV 10/28/24 15:15 Albuterol 2.5 mg Q4HWA NEB 10/28/24 18:00 10/31/24 19:15 2.5 MG Albuterol 2.5 mg Q2HPRN PRN NEB 10/28/24 15:30 Ipratropium [place] 0.5 mg Q4HWA NEB 10/28/24 18:00 10/31/24 19:13 0.5 MG Ipratropium [place] 0.5 mg Q2HPRN PRN NEB 10/28/24 15:30 Methylprednisolone Sodium Succinate 40 mg Q8HR IV 10/28/24 22:00 10/31/24 13:53 40 MG Famotidine 20 mg DAILY IV 10/29/24 10:00 10/31/24 09:26 20 MG Linezolid 300 ml @ 150 mls/hr Q12HR IV 10/29/24 15:00 10/31/24 11:40 150 MLS/HR Sodium Chloride 1,000 ml @ 50 mls/hr Q20H IV 10/29/24 16:30 10/30/24 12:06 50 MLS/HR Insulin Human Regular AC SC 10/30/24 07:00 10/31/24 17:04 20 UNITS Insulin Human Regular HS SC 10/30/24 22:00 10/30/24 21:42 8 UNITS Insulin Glargine 15 units DAILY@1000 SC 10/30/24 10:00 10/31/24 09:25 15 UNITS Laboratory Results Laboratory Tests 10/30/24 06:16 10/31/24 06:39 Chemistry Test 10/31/24 06:39 Calcium Level 9.6 mg/dL (8.7-10.4) Urinalysis Test 10/28/24 13:29 Urine Color Light-yellow (Yellow) Urine Clarity Clear (Clear) Urine pH 5.5 (5.0-9.0) Urine Specific [place] 1.014 (1.001-1.035) Urine Protein Trace (Negative) H Urine Ketones Negative (Negative) Urine Blood Trace /uL (Negative) H Urine Nitrite Negative (Negative) Urine Bilirubin Negative (Negative) Urine Urobilinogen Normal mg/dL (Negative) Urine Leukocyte Esterase Negative /uL (Negative) Urine RBC 1 /hpf (0 - 3) Urine Microscopic WBC < 1 /HPF (0-3) Urine Squamous Epithelial Cells None seen /hpf (<5) Urine Bacteria Few /hpf (None Seen) H Urine Glucose 4+ mg/dL (Normal) H Microbiology Microbiology Date/Time Source Procedure Growth Status 10/29/24 15:29 Blood Blood Culture - Preliminary NO GROWTH AFTER 48 HOURS OF INCUBATION. Resulted Assessment/Plan Assessment/Plan Bilateral pneumonia Leukocytosis sepsis and possible bacteremia with with sepsis/blood culture growing Gram-positive cocci in clusters Hyperglycemia Diabetes/uncontrolled Hypertension Acute kidney injury on chronic kidney disease Morbid obesity History of hernia repair Plan: Add Zyvox. Awaiting culture. Repeat culture. Further plan per orders Creat 2.6>2>1.8 Monitor BMP Plan discussed with: Patient Date of Service: Oct 31, 2024 Billing Provider: TAWNY SHABAZZ MD Common Visit Codes: [id number] INP/OBS CARE(HIGH) TAWNY SHABAZZ MD Oct 31, 2024 19:25
[2024-11-01] VITALS (15 sets, daily range): BP systolic 116–138; BP diastolic 79–87; PULSE 72–117; RESP 16–20; TEMP 97.4–98.9; O2SAT 90–97
[2024-11-01 07:43] LABS: Anion Gap 11 (5-15); Carbon Dioxide 23 mmol/L (20-31); Chloride 102 mmol/L (98-107); Potassium 3.8 mmol/L (3.5-5.1)
[2024-11-01 07:44] LABS: Calcium 9.6 mg/dL (8.7-10.4)
[2024-11-01 07:45] LABS: Sodium 136 mmol/L (136-145)
[2024-11-01 07:49] LABS: BUN/Creatinine Ratio 21.8 (10.0-20.0)
[2024-11-01 07:50] LABS: Blood Urea Nitrogen 39 mg/dL (9-23); Glucose 286 mg/dL (74-106)
--- NOTE | 2024-11-01 10:36 | DVHPN2 ---
Progress Note Date Seen: Nov 01, 2024 Medical Necessity Reason Pt with a Central, PICC or Fol: No Subjective Other Systems: Patient seen and examined by myself today in follow-up Objective vital signs Vital Sign Date Time Temp Pulse Resp B/P (MAP) Pulse Ox O2 Delivery O2 Flow Rate FiO2 11/01/24 10:33 86 18 94 11/01/24 10:33 Nasal Cannula 2.0 11/01/24 10:33 28 11/01/24 09:00 97.7 138/82 (100) 97.7 Total Intake and Output 10/31/24 10/31/24 11/01/24 15:00 23:00 07:00 Intake Total 1090 ml 1160 ml 1100 ml Output Total 900 ml Balance 1090 ml 1160 ml 200 ml medications Current Medications Medications Dose Ordered Sig/Roxann Route Start Time Stop Time Status Last Admin Dose Admin Ceftriaxone Sodium 50 ml @ 100 mls/hr DAILY@09 IV 10/29/24 09:00 11/01/24 10:11 100 MLS/HR Acetaminophen/ Hydrocodone Bitart 1 tab Q4HP PRN PO 10/28/24 15:15 10/29/24 23:18 1 TAB Ondansetron HCl 4 mg Q4HP PRN IV 10/28/24 15:15 Enoxaparin Sodium 30 mg DAILY SC 10/29/24 10:00 11/01/24 10:12 30 MG Acetaminophen 650 mg Q6HP PRN PO 10/28/24 15:15 Diagnostic Test (Pha) 1 strip ACHS 10/28/24 17:00 11/01/24 06:03 1 STRIP Dextrose 50 ml UD PRN IV 10/28/24 15:15 Albuterol 2.5 mg Q4HWA NEB 10/28/24 18:00 11/01/24 10:33 2.5 MG Albuterol 2.5 mg Q2HPRN PRN NEB 10/28/24 15:30 Ipratropium [place] 0.5 mg Q4HWA NEB 10/28/24 18:00 11/01/24 10:33 0.5 MG Ipratropium [place] 0.5 mg Q2HPRN PRN NEB 10/28/24 15:30 Methylprednisolone Sodium Succinate 40 mg Q8HR IV 10/28/24 22:00 11/01/24 06:07 40 MG Famotidine 20 mg DAILY IV 10/29/24 10:00 11/01/24 10:11 20 MG Linezolid 300 ml @ 150 mls/hr Q12HR IV 10/29/24 15:00 10/31/24 22:31 150 MLS/HR Sodium Chloride 1,000 ml @ 50 mls/hr Q20H IV 10/29/24 16:30 11/01/24 05:54 50 MLS/HR Insulin Human Regular AC SC 10/30/24 07:00 11/01/24 06:05 12 UNITS Insulin Human Regular HS SC 10/30/24 22:00 10/31/24 22:46 6 UNITS Insulin Glargine 15 units DAILY@1000 SC 10/30/24 10:00 11/01/24 10:26 15 UNITS Examination: LUNGS:Normal, CVS:Normal, MSK:Normal laboratory and microbiology Laboratory Tests 11/01/24 06:14 10/30/24 06:16 Test 11/01/24 06:14 Range/Units Serum Glucose 286 H 74-106 mg/dL Microbiology Date/Time Source Procedure Growth Status 10/29/24 15:29 Blood Blood Culture - Preliminary NO GROWTH AFTER 48 HOURS OF INCUBATION. Resulted Problem List/Assessment/Plan Problem List/Assessment/Plan Acute kidney injury superimposed Chronic Kidney Disease secondary hemodynamic mediated Acute hypoxic respiratory failure Pneumonia MSSA bacteremia Diabetes uncontrolled Hypertension Vitamin-D deficiency Recommendations Kidney function continues to improve Increased urine output Strict I&Os Kidney ultrasound reported bilateral echogenic kidney Insulin sliding scale Blood pressure control IV antibiotic We will continue to follow Plan discussed with: Patient Dietary Evaluation Review Comments: 1. CCHO-60, Cardiac, Renal specific-65g protein 2. vit D supplementation Expected Outcomes/Goals: controlled DM, less uremic syndrome. improved heart ehalth, gradual wt loss. BONY MCGOWAN MD Nov 01, 2024 10:36
[2024-11-01] MEDS: INSULIN LANTUS (GLARGINE) 1 /0.01ml (100units/ml) SC ONE (15:33)
[2024-11-01] MEDS ORDERED: DEXTROSE (50%) 50ML SYRG IV PRN (15:45)
[2024-11-01] MEDS: ACCU-CHEK COMFORT CURVE STRIP VI SCH (16:30)
[2024-11-01] MEDS: InsuLIN REG 1unit/0.01ml Soln (100units/ml) SC SCH (16:39)
--- NOTE | 2024-11-01 19:39 | DVHPN2 ---
Subjective he is back on oxygen to 3L today Reviewed: Care Plan, H&P, Labs, Medications, Previous Orders, Radiology Changes from previous H/P or p: No Changes Respiratory: Cough Objective Vitals Vital Signs Date Time Temp Pulse Resp B/P (MAP) Pulse Ox O2 Delivery O2 Flow Rate FiO2 11/01/24 18:54 95 Nasal Cannula* 2 28 11/01/24 18:54 105 18 11/01/24 17:00 97.7 116/82 (93) 97.7 Intake/Output Intake and Output 11/01/24 06:59 Intake Total 3350 ml Output Total 900 ml Balance 2450 ml Intake Oral 2700 ml IV Total 650 ml Output Urine Total 900 ml # Voids 3 General Appearance: Alert, Oriented X3, Cooperative, No acute distress HEENT: Atraumatic Lungs: Other (Few crackles bilateral lungs with good air entry) Cardiovascular: Regular rate Abdomen: Normal bowel sounds, Soft, No tenderness Medications Current Medications Medications Dose Ordered Sig/Roxann Route Start Time Stop Time Status Last Admin Dose Admin Ceftriaxone Sodium 50 ml @ 100 mls/hr DAILY@09 IV 10/29/24 09:00 11/01/24 10:11 100 MLS/HR Acetaminophen/ Hydrocodone Bitart 1 tab Q4HP PRN PO 10/28/24 15:15 10/29/24 23:18 1 TAB Ondansetron HCl 4 mg Q4HP PRN IV 10/28/24 15:15 Enoxaparin Sodium 30 mg DAILY SC 10/29/24 10:00 11/01/24 10:12 30 MG Acetaminophen 650 mg Q6HP PRN PO 10/28/24 15:15 Albuterol 2.5 mg Q4HWA NEB 10/28/24 18:00 11/01/24 18:54 2.5 MG Albuterol 2.5 mg Q2HPRN PRN NEB 10/28/24 15:30 Ipratropium [place] 0.5 mg Q4HWA NEB 10/28/24 18:00 11/01/24 18:54 0.5 MG Ipratropium [place] 0.5 mg Q2HPRN PRN NEB 10/28/24 15:30 Famotidine 20 mg DAILY IV 10/29/24 10:00 11/01/24 10:11 20 MG Linezolid 300 ml @ 150 mls/hr Q12HR IV 10/29/24 15:00 11/01/24 13:14 150 MLS/HR Sodium Chloride 1,000 ml @ 50 mls/hr Q20H IV 10/29/24 16:30 11/01/24 05:54 50 MLS/HR Guaifenesin/ Codeine Phosphate 10 ml Q4HPRN PRN PO 11/01/24 11:00 Insulin Glargine 25 units BID@1000,2200 SC 11/01/24 22:00 Diagnostic Test (Pha) 1 strip IQ4HR 11/01/24 16:00 11/01/24 16:30 1 STRIP Insulin Human Regular IQ4HR SC 11/01/24 16:00 11/01/24 16:39 20 UNITS Dextrose 50 ml UD PRN IV 11/01/24 15:45 Laboratory Results Laboratory Tests 10/30/24 06:16 11/01/24 06:14 Chemistry Test 11/01/24 06:14 Calcium Level 9.6 mg/dL (8.7-10.4) Urinalysis Test 10/28/24 13:29 Urine Color Light-yellow (Yellow) Urine Clarity Clear (Clear) Urine pH 5.5 (5.0-9.0) Urine Specific [place] 1.014 (1.001-1.035) Urine Protein Trace (Negative) H Urine Ketones Negative (Negative) Urine Blood Trace /uL (Negative) H Urine Nitrite Negative (Negative) Urine Bilirubin Negative (Negative) Urine Urobilinogen Normal mg/dL (Negative) Urine Leukocyte Esterase Negative /uL (Negative) Urine RBC 1 /hpf (0 - 3) Urine Microscopic WBC < 1 /HPF (0-3) Urine Squamous Epithelial Cells None seen /hpf (<5) Urine Bacteria Few /hpf (None Seen) H Urine Glucose 4+ mg/dL (Normal) H Microbiology Microbiology Date/Time Source Procedure Growth Status 10/29/24 15:29 Blood Blood Culture - Preliminary NO GROWTH AFTER 72 HOURS OF INCUBATION. Resulted Assessment/Plan Assessment/Plan Bilateral pneumonia Bacteremia with staph aureus Hyperglycemia Diabetes/uncontrolled Hypertension Acute kidney injury on chronic kidney disease Morbid obesity History of hernia repair Plan: Increase lantus to 25U BID Continue IV abx with zyvox and zosyn Creat 2.6>2>1.8>1.79 Monitor BMP Order echocardiogram to rule out any vegetations Plan discussed with: Patient My Orders Orders - TAWNY SHABAZZ MD Procedure Category Date Status Time Guaifenesin-Codeine PHA 11/01/24 In Process Liquid (Robitussin/C 11:00 Insulin Lantus PHA 11/01/24 In Process (Glargine) (Lantus) 22:00 Glucose Blood PHA 11/01/24 In Process (Accu-Chek Comfort 16:00 Insulin R (Human) PHA 11/01/24 In Process (Insulin R) 16:00 Dextrose 50% Syringe PHA 11/01/24 In Process 15:45 Consistent DIET 11/01/24 Transmitted Carb(Ccho)Diabetes Dinner Date of Service: Nov 01, 2024 Billing Provider: TAWNY SHABAZZ MD Common Visit Codes: [id number] INP/OBS CARE(HIGH) TAWNY SHABAZZ MD Nov 01, 2024 19:39
[2024-11-01] MEDS: INSULIN LANTUS (GLARGINE) 1 /0.01ml (100units/ml) SC SCH (22:00)
[2024-11-02] VITALS (17 sets, daily range): BP systolic 116–130; BP diastolic 71–87; PULSE 78–105; RESP 16–19; TEMP 97.7–100.1; O2SAT 92–96
[2024-11-02 07:02] LABS: Chloride 102 mmol/L (98-107); Potassium 3.6 mmol/L (3.5-5.1); Sodium 136 mmol/L (136-145)
[2024-11-02 07:03] LABS: Anion Gap 10 (5-15); Carbon Dioxide 24 mmol/L (20-31)
[2024-11-02 07:04] LABS: Calcium 9.1 mg/dL (8.7-10.4)
[2024-11-02 07:09] LABS: BUN/Creatinine Ratio 15.7 (10.0-20.0)
[2024-11-02 07:10] LABS: Blood Urea Nitrogen 29 mg/dL (9-23); Glucose 142 mg/dL (74-106)
--- NOTE | 2024-11-02 10:47 | DVHPN2 ---
Reviewed: Care Plan, H&P, Labs, Medications, Previous Orders, Radiology Changes from previous H/P or p: No Changes Respiratory: Cough Objective Vitals Vital Signs Date Time Temp Pulse Resp B/P (MAP) Pulse Ox O2 Delivery O2 Flow Rate FiO2 11/02/24 10:00 95 Nasal Cannula 3.0 11/02/24 10:00 32 11/02/24 09:14 105 18 11/02/24 09:00 98.2 123/80 (94) 98.2 Intake/Output Intake and Output 11/02/24 07:00 Intake Total 2865 ml Output Total 745 ml Balance 2120 ml Intake Oral 1565 ml IV Total 1300 ml Output Urine Total 745 ml # Bowel Movements 2 General Appearance: Alert, Oriented X3, Cooperative, No acute distress HEENT: Atraumatic Lungs: Other (Few crackles bilateral lungs with good air entry) Cardiovascular: Regular rate Abdomen: Normal bowel sounds, Soft, No tenderness Medications Current Medications Medications Dose Ordered Sig/Roxann Route Start Time Stop Time Status Last Admin Dose Admin Ceftriaxone Sodium 50 ml @ 100 mls/hr DAILY@09 IV 10/29/24 09:00 11/02/24 09:08 100 MLS/HR Acetaminophen/ Hydrocodone Bitart 1 tab Q4HP PRN PO 10/28/24 15:15 10/29/24 23:18 1 TAB Ondansetron HCl 4 mg Q4HP PRN IV 10/28/24 15:15 Enoxaparin Sodium 30 mg DAILY SC 10/29/24 10:00 11/02/24 09:09 30 MG Acetaminophen 650 mg Q6HP PRN PO 10/28/24 15:15 Albuterol 2.5 mg Q4HWA NEB 10/28/24 18:00 11/02/24 09:08 2.5 MG Albuterol 2.5 mg Q2HPRN PRN NEB 10/28/24 15:30 Ipratropium [place] 0.5 mg Q4HWA NEB 10/28/24 18:00 11/02/24 09:08 0.5 MG Ipratropium [place] 0.5 mg Q2HPRN PRN NEB 10/28/24 15:30 Famotidine 20 mg DAILY IV 10/29/24 10:00 11/02/24 09:08 20 MG Linezolid 300 ml @ 150 mls/hr Q12HR IV 10/29/24 15:00 11/02/24 09:08 150 MLS/HR Sodium Chloride 1,000 ml @ 50 mls/hr Q20H IV 10/29/24 16:30 11/02/24 04:50 50 MLS/HR Guaifenesin/ Codeine Phosphate 10 ml Q4HPRN PRN PO 11/01/24 11:00 Insulin Glargine 25 units BID@1000,2200 SC 11/01/24 22:00 11/02/24 08:16 25 UNITS Diagnostic Test (Pha) 1 strip IQ4HR 11/01/24 16:00 11/02/24 08:14 1 STRIP Insulin Human Regular IQ4HR SC 11/01/24 16:00 11/02/24 08:16 4 UNITS Dextrose 50 ml UD PRN IV 11/01/24 15:45 Laboratory Results Laboratory Tests 10/30/24 06:16 11/02/24 06:15 Chemistry Test 11/02/24 06:15 Calcium Level 9.1 mg/dL (8.7-10.4) Urinalysis Test 10/28/24 13:29 Urine Color Light-yellow (Yellow) Urine Clarity Clear (Clear) Urine pH 5.5 (5.0-9.0) Urine Specific [place] 1.014 (1.001-1.035) Urine Protein Trace (Negative) H Urine Ketones Negative (Negative) Urine Blood Trace /uL (Negative) H Urine Nitrite Negative (Negative) Urine Bilirubin Negative (Negative) Urine Urobilinogen Normal mg/dL (Negative) Urine Leukocyte Esterase Negative /uL (Negative) Urine RBC 1 /hpf (0 - 3) Urine Microscopic WBC < 1 /HPF (0-3) Urine Squamous Epithelial Cells None seen /hpf (<5) Urine Bacteria Few /hpf (None Seen) H Urine Glucose 4+ mg/dL (Normal) H Microbiology Microbiology Date/Time Source Procedure Growth Status 10/29/24 15:29 Blood Blood Culture - Preliminary NO GROWTH AFTER 72 HOURS OF INCUBATION. Resulted Labs and/or images reviewed: Labs reviewed by me, Image(s) reviewed by me Assessment/Plan Assessment/Plan Bilateral pneumonia Bacteremia with staph aureus, continue Rocephin and Zyvox Hyperglycemia Diabetes/uncontrolled: Lantus Hypertension Acute kidney injury on chronic kidney disease , Nephrology consult appreciated Morbid obesity History of hernia repair Echo report pending Possible DC home tomorrow Check ABG on room air Plan discussed with: Patient Date of Service: Nov 02, 2024 Billing Provider: SUKH MORALES MD Common Visit Codes: [id number] INP/OBS CARE(HIGH) SUKH MORALES MD Nov 02, 2024 10:47
[2024-11-02 11:31] LABS: Base Excess 1.7 mmol/L (-2.0-3.0)
[2024-11-02] MEDS: guaiFENesin-CODEINE Liq 5 ML UD PO PRN (11:53)
--- NOTE | 2024-11-02 13:04 | DVH ---
CHEST RADIOGRAPH Indication: Left-sided pneumonia Technique: Frontal view of the chest. Comparison: XY CHEST PORTABLE on DOS: 10/30/24, XY CHEST PORTABLE on DOS: 10/28/24, XY CHEST PORTABLE on DOS: 10/30/24 FINDINGS: LUNGS AND PLEURAL SPACES: Pulmonary congestion and edema. Pneumonia cannot be excluded. Left basil ar atelectasis or pneumonia. No pneumothorax. HEART: Unremarkable. No cardiomegaly. MEDIASTINUM: Unremarkable. Normal mediastinal contour. BONES/JOINTS: Unremarkable. No acute fracture. OTHER FINDINGS: . . IMPRESSION: 1. Pulmonary congestion and edema. Pneumonia cannot be excluded. 2. Left basilar atelectasis or pneumonia.
--- NOTE | 2024-11-02 14:00 | DVHSR ---
APPROVED REPORT EXAM: Two-dimensional and M-mode echocardiogram with Doppler and color Doppler. Blood Pressure: 130/77 mmHg RISK FACTORS Obesity: Height: 5'1, Weight: 193 DIMENSIONS LVDd4.4 (3.8-5.7cm)LA (2D)3.6 (1.9-4.0cm)Aortic Root3.8 (2.0-3.7cm) LVDs3.1 (2.5-4.0cm)LA (MM) (1.9-4.0cm)Aortic Cusp Exc1.6 (1.5-2.0cm) EF (%) 54.0 (55-70%)Rt. Atrium3.0 (1.9-4.0cm)Asc. Aorta cm IVSd1.2 (0.7-1.1cm)RV (D) (1.8-2.4cm) PWd1.0 (0.7-1.1cm) Mitral Valve MitralMitral Stenosis E wave0.66m/sMV Mean GR.mmHg A wave1.03m/sMV Peak GR.mmHg E/A ratio0.62D MVAcm2 DECEL [id number] 1/2 [place] Aortic Valve Aortic ValveAortic Stenosis V10.92m/Johnson Mean GR.3mmHg V21.18m/Johnson Peak GR.6mmHg LVOT Diameter1.9 (1.8-2.4cm)Doppler AVA2.21cm2 Pulmonic Valve V20.85m/s Tricuspid Valve TR Velocity2.51m/s [id number] Other Information Technically limited study due to patient moving. Conclusion lvef 55% mild LVH RV not well seen, suspected enlargement but cannot assess well left atrium enlarged no severe valve abnormalities noted
--- NOTE | 2024-11-02 14:05 | DVHPN2 ---
Progress Note Date Seen: Nov 02, 2024 Medical Necessity Reason Pt with a Central, PICC or Fol: No Subjective Patient reports: No new complaints Other Systems: Patient seen and examined by myself today in follow-up Objective vital signs Vital Sign Date Time Temp Pulse Resp B/P (MAP) Pulse Ox O2 Delivery O2 Flow Rate FiO2 11/02/24 13:48 104 18 96 11/02/24 13:41 Nasal Cannula 3.0 11/02/24 13:41 32 11/02/24 12:52 98.1 121/84 (96) 98.1 Total Intake and Output 11/01/24 11/01/24 11/02/24 15:00 23:00 07:00 Intake Total 460 ml 805 ml 1600 ml Output Total 545 ml 200 ml Balance 460 ml 260 ml 1400 ml medications Current Medications Medications Dose Ordered Sig/Roxann Route Start Time Stop Time Status Last Admin Dose Admin Ceftriaxone Sodium 50 ml @ 100 mls/hr DAILY@09 IV 10/29/24 09:00 11/02/24 09:08 100 MLS/HR Acetaminophen/ Hydrocodone Bitart 1 tab Q4HP PRN PO 10/28/24 15:15 10/29/24 23:18 1 TAB Ondansetron HCl 4 mg Q4HP PRN IV 10/28/24 15:15 Enoxaparin Sodium 30 mg DAILY SC 10/29/24 10:00 11/02/24 09:09 30 MG Acetaminophen 650 mg Q6HP PRN PO 10/28/24 15:15 Albuterol 2.5 mg Q4HWA NEB 10/28/24 18:00 11/02/24 13:41 2.5 MG Albuterol 2.5 mg Q2HPRN PRN NEB 10/28/24 15:30 Ipratropium [place] 0.5 mg Q4HWA NEB 10/28/24 18:00 11/02/24 13:41 0.5 MG Ipratropium [place] 0.5 mg Q2HPRN PRN NEB 10/28/24 15:30 Famotidine 20 mg DAILY IV 10/29/24 10:00 11/02/24 09:08 20 MG Linezolid 300 ml @ 150 mls/hr Q12HR IV 10/29/24 15:00 11/02/24 09:08 150 MLS/HR Sodium Chloride 1,000 ml @ 50 mls/hr Q20H IV 10/29/24 16:30 11/02/24 04:50 50 MLS/HR Guaifenesin/ Codeine Phosphate 10 ml Q4HPRN PRN PO 11/01/24 11:00 11/02/24 11:53 10 ML Insulin Glargine 25 units BID@1000,2200 SC 11/01/24 22:00 11/02/24 08:16 25 UNITS Diagnostic Test (Pha) 1 strip IQ4HR 11/01/24 16:00 11/02/24 11:53 1 STRIP Insulin Human Regular IQ4HR SC 11/01/24 16:00 11/02/24 11:54 4 UNITS Dextrose 50 ml UD PRN IV 11/01/24 15:45 Examination: LUNGS:Normal, CVS:Normal, MSK:Normal laboratory and microbiology Laboratory Tests 11/02/24 06:15 10/30/24 06:16 Test 11/02/24 06:15 Range/Units Serum Glucose 142 #H 74-106 mg/dL Microbiology Date/Time Source Procedure Growth Status 10/29/24 15:29 Blood Blood Culture - Preliminary NO GROWTH AFTER 72 HOURS OF INCUBATION. Resulted Problem List/Assessment/Plan Problem List/Assessment/Plan Acute kidney injury superimposed Chronic Kidney Disease stage IIIB secondary hemodynamic mediated Acute hypoxic respiratory failure O2 nasal cannula Pneumonia MSSA bacteremia Diabetes uncontrolled Hypertension Vitamin-D deficiency Recommendations Kidney function continues to improve Increased urine output Strict I&Os Kidney ultrasound reported bilateral echogenic kidney Insulin sliding scale Blood pressure control IV antibiotic Noted plan for home O2 after discharge We will continue to follow Plan discussed with: Patient Dietary Evaluation Review Comments: 1. CCHO-60, Cardiac, Renal specific-65g protein 2. vit D supplementation Expected Outcomes/Goals: controlled DM, less uremic syndrome. improved heart ehalth, gradual wt loss. BONY MCGOWAN MD Nov 02, 2024 14:05
[2024-11-03] VITALS (13 sets, daily range): BP systolic 103–141; BP diastolic 71–88; PULSE 75–112; RESP 16–20; TEMP 98–98.5; O2SAT 95–99
[2024-11-03 07:10] LABS: Chloride 99 mmol/L (98-107); Potassium 3.8 mmol/L (3.5-5.1); Sodium 136 mmol/L (136-145)
[2024-11-03 07:11] LABS: Anion Gap 8 (5-15); Calcium 9.4 mg/dL (8.7-10.4)
[2024-11-03 07:16] LABS: BUN/Creatinine Ratio 14.7 (10.0-20.0)
[2024-11-03 07:19] LABS: Blood Urea Nitrogen 29 mg/dL (9-23); Carbon Dioxide 29 mmol/L (20-31); Glucose 108 mg/dL (74-106)
[2024-11-03] MEDS ORDERED: CLIN1CAP70 PO ×2 (09:34)
--- NOTE | 2024-11-03 09:40 | DVHPN2 ---
Reviewed: Care Plan, H&P, Labs, Medications, Previous Orders, Radiology Changes from previous H/P or p: No Changes Respiratory: Cough Objective Vitals Vital Signs Date Time Temp Pulse Resp B/P (MAP) Pulse Ox O2 Delivery O2 Flow Rate FiO2 11/03/24 08:45 98.5 75 17 120/80 (93) 96 98.5 11/03/24 06:19 Nasal Cannula* 2 28 Intake/Output Intake and Output 11/03/24 07:00 Intake Total 1500 ml Output Total 800 ml Balance 700 ml Intake Oral 850 ml IV Total 650 ml Output Urine Total 800 ml # Voids 4 # Bowel Movements 2 General Appearance: Alert, Oriented X3, Cooperative, No acute distress HEENT: Atraumatic Lungs: Other (Few crackles bilateral lungs with good air entry) Cardiovascular: Regular rate Abdomen: Normal bowel sounds, Soft, No tenderness Medications Current Medications Medications Dose Ordered Sig/Roxann Route Start Time Stop Time Status Last Admin Dose Admin Ceftriaxone Sodium 50 ml @ 100 mls/hr DAILY@09 IV 10/29/24 09:00 11/02/24 09:08 100 MLS/HR Acetaminophen/ Hydrocodone Bitart 1 tab Q4HP PRN PO 10/28/24 15:15 10/29/24 23:18 1 TAB Ondansetron HCl 4 mg Q4HP PRN IV 10/28/24 15:15 Enoxaparin Sodium 30 mg DAILY SC 10/29/24 10:00 11/02/24 09:09 30 MG Acetaminophen 650 mg Q6HP PRN PO 10/28/24 15:15 Albuterol 2.5 mg Q4HWA NEB 10/28/24 18:00 11/03/24 06:19 2.5 MG Albuterol 2.5 mg Q2HPRN PRN NEB 10/28/24 15:30 Ipratropium [place] 0.5 mg Q4HWA NEB 10/28/24 18:00 11/03/24 06:19 0.5 MG Ipratropium [place] 0.5 mg Q2HPRN PRN NEB 10/28/24 15:30 Famotidine 20 mg DAILY IV 10/29/24 10:00 11/02/24 09:08 20 MG Linezolid 300 ml @ 150 mls/hr Q12HR IV 10/29/24 15:00 11/02/24 23:15 150 MLS/HR Sodium Chloride 1,000 ml @ 50 mls/hr Q20H IV 10/29/24 16:30 11/02/24 04:50 50 MLS/HR Guaifenesin/ Codeine Phosphate 10 ml Q4HPRN PRN PO 11/01/24 11:00 11/02/24 16:14 10 ML Insulin Glargine 25 units BID@1000,2200 SC 11/01/24 22:00 11/02/24 08:16 25 UNITS Diagnostic Test (Pha) 1 strip IQ4HR 11/01/24 16:00 11/03/24 07:46 1 STRIP Insulin Human Regular IQ4HR SC 11/01/24 16:00 11/02/24 20:37 2 UNITS Dextrose 50 ml UD PRN IV 11/01/24 15:45 Laboratory Results Laboratory Tests 10/30/24 06:16 11/03/24 06:00 Chemistry Test 11/03/24 06:00 Calcium Level 9.4 mg/dL (8.7-10.4) Urinalysis Test 10/28/24 13:29 Urine Color Light-yellow (Yellow) Urine Clarity Clear (Clear) Urine pH 5.5 (5.0-9.0) Urine Specific [place] 1.014 (1.001-1.035) Urine Protein Trace (Negative) H Urine Ketones Negative (Negative) Urine Blood Trace /uL (Negative) H Urine Nitrite Negative (Negative) Urine Bilirubin Negative (Negative) Urine Urobilinogen Normal mg/dL (Negative) Urine Leukocyte Esterase Negative /uL (Negative) Urine RBC 1 /hpf (0 - 3) Urine Microscopic WBC < 1 /HPF (0-3) Urine Squamous Epithelial Cells None seen /hpf (<5) Urine Bacteria Few /hpf (None Seen) H Urine Glucose 4+ mg/dL (Normal) H Blood Gas Results Test 11/02/24 11:15 Arterial Blood pH 7.464 (7.350-7.450) FiO2 % 21.0 Microbiology Microbiology Date/Time Source Procedure Growth Status 11/01/24 19:58 Blood Blood Culture - Preliminary NO GROWTH AFTER 24 HOURS OF INCUBATION. Resulted Labs and/or images reviewed: Labs reviewed by me, Image(s) reviewed by me Assessment/Plan Assessment/Plan Bilateral pneumonia MSSA Bacteremia treated with Rocephin Hyperglycemia Diabetes/uncontrolled: Lantus Hypertension Acute kidney injury on chronic kidney disease , Nephrology consult appreciated Morbid obesity History of hernia repair Echo 55 percent ejection fraction Plan discussed with: Patient My Orders Orders - SUKH MORALES MD Procedure Category Date Status Time Chest Xray 1 View XY 11/02/24 Resulted 10:40 Abg W/ Co-Ox RT 11/02/24 Logged 10:49 Date of Service: Nov 03, 2024 Billing Provider: SUKH MORALES MD Common Visit Codes: [id number] INP/OBS CARE(HIGH) SUKH MORALES MD Nov 03, 2024 09:40
--- NOTE | 2024-11-03 09:44 | DVHDS2 ---
Discharge Summary Date of Admission Oct 28, 2024 at 15:01 Date of Discharge: Nov 03, 2024 Admitting Diagnosis Shortness of breath Wounds: none Labs/Diagnostic Data: Laboratory Results Test 11/03/24 07:50 11/03/24 06:00 11/02/24 11:15 10/30/24 06:16 POC Glucose 124 mg/dl (70-106) Sodium Level 136 mmol/L (136-145) Potassium Level 3.8 mmol/L (3.5-5.1) Chloride Level 99 mmol/L (98-107) Carbon Dioxide Level 29 mmol/L (20-31) Anion Gap 8 (5-15) Blood Urea Nitrogen 29 mg/dL (9-23) Creatinine 1.97 mg/dL (0.700-1.30) Glomerular Filtration Rate Calc 36 mL/min (>90) BUN/Creatinine Ratio 14.7 (10.0-20.0) Serum Glucose 108 mg/dL (74-106) Calcium Level 9.4 mg/dL (8.7-10.4) Blood Gas Specimen Type Arterial Blood Gas Sample Site Left radial Blood Gas Patient Temperature 37.0 Arterial Blood Date Drawn [id number] Arterial Blood pH 7.464 (7.350-7.450) Arterial Blood Partial Pressure CO2 35.6 mmHg (35.0-48.0) Arterial Blood Partial Pressure O2 49.9 mmHg (83.0-108.0) Arterial Blood HCO3 25.0 mmol/L (21.0-28.0) Arterial Blood Oxygen Saturation 86.4 % (94.0-98.0) Arterial Blood Base Excess 1.7 mmol/L (-2.0-3.0) Arterial Blood Oxyhemoglobin 85.3 % (94.0-98.0) Arterial Blood Carboxyhemoglobin 1.0 % (0.5-1.5) Arterial Blood Methemoglobin 0.3 % (0.0-1.5) Efraín Test Yes Blood Gas Total Hemoglobin 17.40 g/dL (13.5-17.5) Blood Gas Modality Room air FiO2 % 21.0 Blood Gas Critical Value Read Back Yes Blood Gas Notified Whom kerrie Morales md Blood Gas Notified Time [id number] Blood Gas Notified By Hot Tar Roofer husam yip White Blood Count 11.7 10^3/uL (4.4-10.8) Red Blood Count 4.84 10^6/uL (4.5-5.90) Hemoglobin 15.0 g/dL (13.5-17.5) Hematocrit 44.0 % (41.0-53.0) Mean Corpuscular Volume 91.0 fL (80.0-100.0) Mean Corpuscular Hemoglobin 31.0 pg (28.0-32.0) Mean Corpuscular Hemoglobin Concent 34.1 g/dL (32.0-36.0) Red Cell Distribution Width 14.4 % (11.8-14.3) Platelet Count 219 10^3/uL (140-450) Mean Platelet Volume 7.9 fL (6.9-10.8) Neutrophils (%) (Auto) 86.0 % (37.0-80.0) Lymphocytes (%) (Auto) 7.3 % (10.0-50.0) Monocytes (%) (Auto) 6.6 % (0.0-12.0) Eosinophils (%) (Auto) 0.0 % (0.0-7.0) Basophils (%) (Auto) 0.1 % (0.0-2.0) Neutrophils # (Auto) 10.1 10 ^3/uL (1.6-8.6) Lymphocytes # (Auto) 0.9 10 ^3/uL (0.4-5.4) Monocytes # (Auto) 0.8 10 ^3/uL (0-1.3) Eosinophils # (Auto) 0 10 ^3/uL (0-0.8) Basophils # (Auto) 0 10 ^3/uL (0-0.2) Nucleated Red Blood Cells 0.1 % Phosphorus Level 2.1 mg/dL (2.4-5.1) Vitamin D 25-Hydroxy 16.7 ng/mL (30.0-100) Parathyroid Hormone (Intact) 77.2 pg/mL (18.4-80.1) Test 10/29/24 05:28 10/28/24 16:48 10/28/24 13:41 10/28/24 13:29 Total Bilirubin 0.5 mg/dL (0.2-1.0) Aspartate Amino Transferase (AST) 18 U/L (13-40) Alanine Aminotransferase (ALT) 27 U/L (7-40) Alkaline Phosphatase 100 U/L (46-116) Creatine Kinase 129 U/L (46-171) Total Protein 6.8 g/dL (5.7-8.2) Albumin 3.8 g/dL (3.2-4.8) Lactic Acid Level 1.7 mmol/L (0.4-2.0) Troponin I High Sensitivity 5 ng/L (</=54) Hemoglobin A1c 7.8 % A1C (<5.7) Magnesium Level 2.0 mg/dL (1.6-2.6) B-Type Natriuretic Peptide 78.55 pg/mL (0-100) Urine Color Light-yellow (Yellow) Urine Clarity Clear (Clear) Urine pH 5.5 (5.0-9.0) Urine Specific [place] 1.014 (1.001-1.035) Urine Protein Trace (Negative) Urine Ketones Negative (Negative) Urine Blood Trace /uL (Negative) Urine Nitrite Negative (Negative) Urine Bilirubin Negative (Negative) Urine Urobilinogen Normal mg/dL (Negative) Urine Leukocyte Esterase Negative /uL (Negative) Urine RBC 1 /hpf (0 - 3) Urine Microscopic WBC < 1 /HPF (0-3) Urine Squamous Epithelial Cells None seen /hpf (<5) Urine Bacteria Few /hpf (None Seen) Urine Glucose 4+ mg/dL (Normal) Test 10/28/24 13:26 Influenza Type A Antigen Negative (Negative) Influenza Type B Antigen Negative (Negative) SARS-CoV-2 Antigen (Rapid) Negative (NEGATIVE) Other Laboratory Tests 11/03/24 06:00 10/30/24 06:16 Brief Hx & Hospital Course: Patient was originally seen by Dr. White 68-year-old male with a history of hypertension diabetes morbidly obesity recent history of hernia repair came in complaining of shortness of breaths found to have bilateral community-acquired pneumonia and MSSA bacteremia treated with Rocephin. Acute kidney injury addressed by router tender at the time of discharge patient on 2 L of oxygen by nasal cannula qualified for home oxygen by ABG. Repeat blood cultures came negative discharged home on clindamycin p.o. he will follow up with the discharge clinic and Dr. Gr echo 55 percent ejection fraction. Consults/Reason for consult Nephrology Dr. Gr Operations or Procedures None Condition at Discharge: Fair Final Diagnosis/Problems List Bilateral pneumonia MSSA Bacteremia treated with Rocephin Hyperglycemia Diabetes/uncontrolled: Lantus Hypertension Acute kidney injury on chronic kidney disease , Nephrology consult appreciated Morbid obesity History of hernia repair Echo 55 percent ejection fraction Discharge Disposition: Home Discharge Instruct/Medications Diet: Cardiac 2g Na,low cholest Activity: Light activity Follow Up/Referral: Follow up with discharge clinic in one week Follow up with the Nephrology Dr. Gr in two weeks Medications: Clindamycin Transmitted to pharmacy 35 (Time taken for discharge summary 35 minutes) Discharge Statement: "Patient was advised to return to the ER or call 911 if any headaches, dizziness, shortness of breath, chest pain, abdominal pain, bleeding, fevers, or worsening of medical condition. Patient was counseled about treatment plan, medications, possible side effects, patientverbalized understanding. All questions were answered to the best of my ability. This discharge took greater then 30 minutes in planning, reviewing documentation, counseling the patient, and discussing with other team members." ASSESSMENT ASSESSMENT Hospital Course Improved Assessment Bilateral pneumonia MSSA Bacteremia treated with Rocephin Hyperglycemia Diabetes/uncontrolled: Lantus Hypertension Acute kidney injury on chronic kidney disease , Nephrology consult appreciated Morbid obesity History of hernia repair Echo 55 percent ejection fraction Date of Service: Nov 03, 2024 Billing Provider: SUKH MORALES MD Common Visit Codes: 50616-ZMA/OBS DISCH DAY >30min SUKH MORALES MD Nov 03, 2024 09:44
--- NOTE | 2024-11-03 11:31 | DVHPN2 ---
Progress Note Date Seen: Nov 03, 2024 Medical Necessity Reason Pt with a Central, PICC or Fol: No Subjective Patient reports: No new complaints Other Systems: Patient seen and examined by myself today in follow-up Objective vital signs Vital Sign Date Time Temp Pulse Resp B/P (MAP) Pulse Ox O2 Delivery O2 Flow Rate FiO2 11/03/24 10:13 101 16 96 11/03/24 10:06 Nasal Cannula* 2 28 11/03/24 08:45 98.5 120/80 (93) 98.5 Total Intake and Output 11/02/24 11/02/24 11/03/24 15:00 23:00 07:00 Intake Total 350 ml 550 ml 600 ml Output Total 800 ml Balance 350 ml 550 ml -200 ml medications Current Medications Medications Dose Ordered Sig/Roxann Route Start Time Stop Time Status Last Admin Dose Admin Ceftriaxone Sodium 50 ml @ 100 mls/hr DAILY@09 IV 10/29/24 09:00 11/03/24 10:24 100 MLS/HR Acetaminophen/ Hydrocodone Bitart 1 tab Q4HP PRN PO 10/28/24 15:15 10/29/24 23:18 1 TAB Ondansetron HCl 4 mg Q4HP PRN IV 10/28/24 15:15 Enoxaparin Sodium 30 mg DAILY SC 10/29/24 10:00 11/03/24 10:24 30 MG Acetaminophen 650 mg Q6HP PRN PO 10/28/24 15:15 Albuterol 2.5 mg Q4HWA NEB 10/28/24 18:00 11/03/24 10:06 2.5 MG Albuterol 2.5 mg Q2HPRN PRN NEB 10/28/24 15:30 Ipratropium [place] 0.5 mg Q4HWA NEB 10/28/24 18:00 11/03/24 10:06 0.5 MG Ipratropium [place] 0.5 mg Q2HPRN PRN NEB 10/28/24 15:30 Famotidine 20 mg DAILY IV 10/29/24 10:00 11/03/24 10:24 20 MG Linezolid 300 ml @ 150 mls/hr Q12HR IV 10/29/24 15:00 11/03/24 10:24 150 MLS/HR Sodium Chloride 1,000 ml @ 50 mls/hr Q20H IV 10/29/24 16:30 11/02/24 04:50 50 MLS/HR Guaifenesin/ Codeine Phosphate 10 ml Q4HPRN PRN PO 11/01/24 11:00 11/02/24 16:14 10 ML Insulin Glargine 25 units BID@1000,2200 SC 11/01/24 22:00 11/03/24 10:32 25 UNITS Diagnostic Test (Pha) 1 strip IQ4HR 11/01/24 16:00 11/03/24 07:46 1 STRIP Insulin Human Regular IQ4HR SC 11/01/24 16:00 11/02/24 20:37 2 UNITS Dextrose 50 ml UD PRN IV 11/01/24 15:45 Examination: LUNGS:Normal, CVS:Normal, MSK:Normal laboratory and microbiology Laboratory Tests 11/03/24 06:00 10/30/24 06:16 Test 11/03/24 06:00 Range/Units Serum Glucose 108 H 74-106 mg/dL Microbiology Date/Time Source Procedure Growth Status 11/01/24 19:58 Blood Blood Culture - Preliminary NO GROWTH AFTER 24 HOURS OF INCUBATION. Resulted Problem List/Assessment/Plan Problem List/Assessment/Plan Acute kidney injury superimposed Chronic Kidney Disease stage IIIB secondary hemodynamic mediated Acute hypoxic respiratory failure O2 nasal cannula Pneumonia MSSA bacteremia Diabetes uncontrolled Hypertension Vitamin-D deficiency Recommendations Kidney function stabilized, Chronic Kidney Disease stage IIIB Increased urine output Strict I&Os Kidney ultrasound reported bilateral echogenic kidney Insulin sliding scale Blood pressure control IV antibiotic Noted plan for home O2 after discharge We will continue to follow Plan discussed with: Patient Dietary Evaluation Review Comments: 1. CCHO-60, Cardiac, Renal specific-65g protein 2. vit D supplementation Expected Outcomes/Goals: controlled DM, less uremic syndrome. improved heart ehalth, gradual wt loss. BONY MCGOWAN MD Nov 03, 2024 11:31
== END 2024-11-03 15:00 | disposition home or self-care (01) | DRG 720 ==
LOC: ER 13:09 → OVERFLOW 15:01 → TELE-CENTR 17:55
PROVIDERS: ADMIT Family Medicine; ATTEND Family Medicine
DX: A41.59 Other Gram-negative sepsis (principal); J96.01 Acute respiratory failure with hypoxia; N17.0 Acute kidney failure with tubular necrosis; J15.69 Pneumonia due to other Gram-negative bacteria; J15.9 Unspecified bacterial pneumonia; E11.65 Type 2 diabetes mellitus with hyperglycemia; Z20.822 Contact with and (suspected) exposure to COVID-19; E66.01 Morbid (severe) obesity due to excess calories; E11.22 Type 2 diabetes mellitus with diabetic chronic kidney disease; N18.9 Chronic kidney disease, unspecified; I12.9 Hypertensive chronic kidney disease with stage 1 through stage 4 chronic kidney disease, or unspecified chronic kidney disease; E55.9 Vitamin D deficiency, unspecified; E78.5 Hyperlipidemia, unspecified; Z79.899 Other long term (current) drug therapy; Z68.36 Body mass index [BMI] 36.0-36.9, adult; Z79.84 Long term (current) use of oral hypoglycemic drugs
CPT/HCPCS: 36415; 36600; 71045; 76775; 80048; 80053; 81001; 82306; 82550; 82805; 82962; 83036; 83605; 83735; 83880; 83970; 84100; 84484; 85025; 87040; 87077; 87186; 87426; 87804; 93005; 93352; 94640; 96361; 96365; 96372; 99291; G0378; J1815; J3490

== ENCOUNTER 2024-11-18 12:17 | Inpatient (IN) | payer MEDICAID, OTHER ==
[2024-11-18] VITALS (7 sets, daily range): BP systolic 103; BP diastolic 60; PULSE 84–116; RESP 14–20; TEMP 98.7; O2SAT 95–99
[~2024-11-18] VITALS: Ht 160 cm; Wt 81.0 kg
[~2024-11-18 12:17] MED LIST: AMLO1TAB22 PO; CLIN1CAP70 PO; LOSA-535 PO; METF-370 PO
--- NOTE | 2024-11-18 13:07 | ED.PDOC ---
SOB-HPI HPI Comments 68 y/o M presents with son for c/o mid-axillary line, left-lower rib pain. Pain is intermittent. No alleviating or precipitating factors. Pain sometimes radiates to the posterior ribcage. Patient was seen and admitted at [facility] 2x weeks ago for PNA. Discharge on O2. Patient presents on 2LPM nasal cannula. Denies any chest pain, shortness of breath, cough, congestion, fever, chills, or further associated symptoms at this time. Patient is currently symptoms free Vitals: temperature of 97.7F, pulse rate of 109, respiratory rate of 20, blood pressure of 107/61, SpO2 of 94%2LPM Past Medical History: DM, HTN, 2LPM O2 s/p PNA diagnosis Past Surgical History: denies HPI: Poor Historian. REVIEW OF SYSTEMS: CONSTITUTIONAL: Denies acute: fever, diaphoresis, chills, generalized weakness. HEAD: Denies acute: headache, photophobia Eyes: Denies acute: Double vision, vision loss, eye pain, eye discharge. EARS: Denies acute: tinnitus, hearing loss, ear discharge, ear pain, THROAT: Denies acute: sore throat, swelling, difficulty swallowing , pain with swallowi ng, change in voice. NECK: Denies acute: neck pain, neck swelling, stiff neck. HEART: Denies acute : chest pain, palpitations, LUNGS: Denies acute: SOB, wheezing, cough, hemoptysis ABDOMEN: Denies acute: abdominal pain, Nausea, Vomiting, diarrhea, melena , hematemesis, hematochezia SKIN: Denies acute: rash, redness, lesions, itchiness. EXTREMITIES: Denies acute: calf pain, numbness, tingling, weakness, denies pain in extremity. Denies acute: Low back pain. Neuro: Denies acute: focal neurological deficit, motor or sensory focal neurological deficit, tremors, seizure like activity, confusion, dizziness, change in mental status, loss of bowel or bladder function, cauda equina like symptoms. : Denies acute: dysuria, hematuria, flank pain, increase in urinary frequency. PSYCH: Denies acute: hallucination, suicidal ideation, homicidal ideation. PHYSICAL EXAM: General: ----no----acute distress, awake and alert. Head: normocephalic, atraumatic. Neck: supple, trachea is midline, no swelling. Throat: Normal phonation. Eyes:, no erythema, no purulent discharge, no proptosis, no icterus. Heart: regular rate, regular rhythm, no significant murmur appreciated. Lungs: no apparent respiratory distress, Able to speak in full sentences. No wheezing, no rhonchi, no crackles. No stridors Clear to auscultation bilaterally. Abdomen: non tender to palpation, non distended, soft, no guarding, no rebound, + bowel sounds. Neuro: Awake, Alert, oriented to name, self, situation, follows commands GCS=15. Speech is normal. Skin: no petechia, no purpura, no cyanosis, non-pale, not jaundice. Lower extremities: --no - Pitting edema no deformity, no focal swelling, no calf TTP. Makes eye contact. moves all four extremities. Face: no apparent facial droop. Ambulating in the ED independently. ED COURSE: Chief Complaint: Rib Pain Time Seen by MD: 12:40 Primary Care Provider: ? Reviewed notes: Nurses Notes, Medications, Allergies Information Source: Patient Was a procedure done? Was a procedure done?: No Differential Dx Differential Diagnosis: Other (Ddx include but not limitied to gastritis, musculoskeletal pain, radiculopathy, atypical chest pain, dissection, aneurysm, ACS, unstable angina, hiatal hernia, GERD, anxiety, costochondritis, PE, pneumothroax, neoplasm, cardiac ischemia, drug abuse, anemia.) X-Ray, Labs, Meds, VS Vital Signs Date Time Temp Pulse Resp B/P (MAP) Pulse Ox O2 Delivery O2 Flow Rate FiO2 11/18/24 16:22 98.4 94 15 108/80 (89) 96 98.4 11/18/24 14:58 98.0 100 20 115/69 (84) 95 98.0 11/18/24 14:44 84 16 96 Nasal Cannula* 3 32 11/18/24 12:41 101 11/18/24 12:39 97.7 109 20 107/61 (76) 94 97.7 11/18/24 12:38 20 94 Nasal Cannula* 2 28 Lab Test 11/18/24 13:03 11/18/24 12:54 Range/Units White Blood Count 9.2 4.4-10.8 10^3/uL Red Blood Count 4.67 4.5-5.90 10^6/uL Hemoglobin 13.9 13.5-17.5 g/dL Hematocrit 40.9 L 41.0-53.0 % Mean Corpuscular Volume 87.7 80.0-100.0 fL Mean Corpuscular Hemoglobin 29.7 28.0-32.0 pg Mean Corpuscular Hemoglobin Concent 33.8 32.0-36.0 g/dL Red Cell Distribution Width 13.7 11.8-14.3 % Platelet Count 416 140-450 10^3/uL Mean Platelet Volume 7.1 6.9-10.8 fL Neutrophils (%) (Auto) 59.3 37.0-80.0 % Lymphocytes (%) (Auto) 20.3 10.0-50.0 % Monocytes (%) (Auto) 12.1 H 0.0-12.0 % Eosinophils (%) (Auto) 7.9 H 0.0-7.0 % Basophils (%) (Auto) 0.4 0.0-2.0 % Neutrophils # (Auto) 5.4 1.6-8.6 10 ^3/uL Lymphocytes # (Auto) 1.9 0.4-5.4 10 ^3/uL Monocytes # (Auto) 1.1 0-1.3 10 ^3/uL Eosinophils # (Auto) 0.7 0-0.8 10 ^3/uL Basophils # (Auto) 0 0-0.2 10 ^3/uL Nucleated Red Blood Cells 0.1 % Sodium Level 132 L 136-145 mmol/L Potassium Level 5.4 H 3.5-5.1 mmol/L Chloride Level 101 98-107 mmol/L Carbon Dioxide Level 24 20-31 mmol/L Anion Gap 7 5-15 Blood Urea Nitrogen 38 H 9-23 mg/dL Creatinine 2.11 H 0.700-1.30 mg/dL Glomerular Filtration Rate Calc 33 >90 mL/min BUN/Creatinine Ratio 18.0 10.0-20.0 Serum Glucose 296 H 74-106 mg/dL Lactic Acid Level 2.0 0.4-2.0 mmol/L Calcium Level 9.5 8.7-10.4 mg/dL Total Bilirubin 0.7 0.2-1.0 mg/dL Aspartate Amino Transferase (AST) 29 13-40 U/L Alanine Aminotransferase (ALT) 52 H 7-40 U/L Alkaline Phosphatase 92 46-116 U/L Troponin I High Sensitivity 3 L </=54 ng/L C-Reactive Protein High Sensitivity 13.45 H <1.0 mg/dL Total Protein 7.3 5.7-8.2 g/dL Albumin 3.7 3.2-4.8 g/dL Lipase 143 H 12-53 U/L Urine Color Yellow Yellow Urine Clarity Clear Clear Urine pH 5.5 5.0-9.0 Urine Specific [place] 1.016 1.001-1.035 Urine Protein Negative Negative Urine Ketones Negative Negative Urine Blood Negative Negative /uL Urine Nitrite Negative Negative Urine Bilirubin Negative Negative Urine Urobilinogen Normal Negative mg/dL Urine Leukocyte Esterase Trace Negative /uL Urine RBC 1 0 - 3 /hpf Urine Microscopic WBC 3 0-3 /HPF Urine Squamous Epithelial Cells Few <5 /hpf Urine Bacteria None seen None Seen /hpf Urine Mucus Few None Seen Urine Glucose Normal Normal mg/dL Current Medications Medications (Trade) Dose Ordered Sig/Roxann Route Start Time Stop Time Status Last Admin Piperacillin Sod/ Tazobactam Sod 100 ml @ 100 mls/hr ONCE ONCE IV 11/18/24 14:00 11/18/24 14:59 DC 11/18/24 14:58 [place] [address] Ph: [phone] DIAGNOSTIC IMAGING Diagnostic Imaging Report : [id number] Signed PATIENT: TREASURE GRUBBS ACCT: [id number] UNIT: [id number] : 1955 LOC: ER ROOM / BED: / AGE / SEX: 68 / M ADM STATUS: REG ER SERVICE 1239 ORDERING PHYSICIAN: DIAZ RITTER DO PROCEDURE(s): CX2CT - CHEST WITHOUT CONTRAST REASON: L rib pain, recent PNA ORDER NUMBER(s): [id number], ACCESSION NUMBER(s): [id number] CLINICAL INFORMATION: Left rib pain. Recent pneumonia. TECHNIQUE: Axial CT imaging of the chest was performed without IV contrast. Sagittal and coronal reformatted images were made, stored and reviewed. Evaluation is limited without IV contrast. One or more of the following dose reduction techniques were used: Automated exposure control. Adjustment of mA and/or kV according to patient size. CTDIvol = 16.33 mGy DLP = 553.43 mGy-cm COMPARISON: Radiographs dated 11/02/2024. FINDINGS: Aorta: Mild atherosclerotic calcification. No aneurysm. Cardiac: Heart size is within normal limits. Dense coronary artery calcification. Mediastinum/radha: No mass or adenopathy. Lungs: Respiratory motion artifact limits evaluation for subtle findings. Small left pleural effusion with overlying atelectasis and consolidation in the left lower lobe. Atelectasis and/or developing consolidation in the lingula. Patchy areas of consolidation and ground-glass attenuation are seen in the right upper lobe. Additional scattered areas of subsegmental atelectasis are seen in both lungs. No pneumothorax. Pulmonary arteries: No gross abnormality. Chest wall: No mass or other abnormality. Upper abdomen: Cholecystectomy. Bones: No fracture or suspicious intraosseous lesions. IMPRESSION: 1. Small left pleural effusion with overlying atelectasis and consolidation. 2. Multifocal patchy airspace consolidations and ground-glass opacities, likely infectious or inflammatory in nature, including multifocal pneumonia. Correlate with clinical findings. 3. No acute osseous abnormality identified. No evidence of acute rib fracture ATED BY: ALEXIS JON DO DICTATED DATE/TIME: 11/18/241315 SIGNED BY: ALEXIS JON DO SIGNED DATE/TIME: 11/18/241315 CC: Time of 1ST Reevaluation: 13:10 Reevaluation 1ST: Unchanged Patient Education/Counseling: Diagnosis, Treatment Family Education/Counseling: No Family Present Comments Patient presented with the above HPI.--left ribcage pain----workup was in itiated. patient was found with the above mentioned diagnosis. the following medications were ordered: please refer to order lists of meds and tests obtained by myself Dr. Ritter. Patient ED course and VS have been stabilized. Patient has been reassessed in the ED and remained in a stable condition. Pertinent incidental findings were discussed with the patient and/or family. Patient/family voices understanding and is agreeable with plan. Patient has been observed in the ED adequate length of time to insure improvement/stability. Escalation of care considered: Consideration of escalation to observation or admission Patient was given Zosyn for multifocal pneumonia. The medicine team treated the patient for hyperkalemia. Patient was ADMITTED to the medicine team for further evaluation and treatment of their presentation. All the reports of any imaging studies that were ordered by myself were reviewed by myself. Departure 1 Departure Time of Disposition: 13:51 Impression: Primary Impression: Multifocal pneumonia Additional Impressions: Elevated lipase Acute renal insufficiency Disposition: ADMITTED INPATIENT Admit to: Tele Condition: Guarded Additional Instructions: [place] [address] Ph: [phone] DIAGNOSTIC IMAGING Diagnostic Imaging Report : [id number] Signed PATIENT: TREASURE GRUBBS ACCT: [id number] UNIT: [id number] : 1955 LOC: ER ROOM / BED: / AGE / SEX: 68 / M ADM STATUS: REG ER SERVICE 1239 ORDERING PHYSICIAN: DIAZ RITTER DO PROCEDURE(s): CX2CT - CHEST WITHOUT CONTRAST REASON: L rib pain, recent PNA ORDER NUMBER(s): [id number], ACCESSION NUMBER(s): [id number] CLINICAL INFORMATION: Left rib pain. Recent pneumonia. TECHNIQUE: Axial CT imaging of the chest was performed without IV contrast. Sagittal and coronal reformatted images were made, stored and reviewed. Evaluation is limited without IV contrast. One or more of the following dose reduction techniques were used: Automated exposure control. Adjustment of mA and/or kV according to patient size. CTDIvol = 16.33 mGy DLP = 553.43 mGy-cm COMPARISON: Radiographs dated 11/02/2024. FINDINGS: Aorta: Mild atherosclerotic calcification. No aneurysm. Cardiac: Heart size is within normal limits. Dense coronary artery calcifi cation. Mediastinum/radha: No mass or adenopathy. Lungs: Respiratory motion artifact limits evaluation for subtle findings. Small left pleural effusion with overlying atelectasis and consolidation in the left lower lobe. Atelectasis and/or developing consolidation in the lingula. Patchy areas of consolidation and ground-glass attenuation are seen in the right upper lobe. Additional scattered areas of subsegmental atelectasis are seen in both lungs. No pneumothorax. Pulmonary arteries: No gross abnormality. Chest wall: No mass or other abnormality. Upper abdomen: Cholecystectomy. Bones: No fracture or suspicious intraosseous lesions. IMPRESSION: 1. Small left pleural effusion with overlying atelectasis and consolidation. 2. Multifocal patchy airspace consolidations and ground-glass opacities, likely infectious or inflammatory in nature, including multifocal pneumonia. Correlate with clinical findings. 3. No acute osseous abnormality identified. No evidence of acute rib fracture ATED BY: ALEXIS JON DO DICTATED DATE/TIME: 11/18/24 131 SIGNED BY: ALEXIS JON DO SIGNED DATE/TIME: 11/18/24 131 CC: Discharged With: Self Critical Care Note Critical Care Time?: Yes (45 min-critical care time only) Heart Score Heart Score: Heart Score Response (Comments) Value History Moderate Suspicious 1 EKG Normal 0 Age >65 2 Risk Factors 1 or 2 risk factors 1 Troponin Normal limit 0 Total 4 I personally scribed for DIAZ RITTER DO ([email or web address]) on 11/18/24 at 13:07. Electronically submitted by Cecil Buckley ([email or web address]). I personally scribed for DIAZ RITTER DO ([email or web address]) on 11/18/24 at 14:02. Electronically submitted by Cecil Buckley ([email or web address]). I personally scribed for DIAZ RITTER DO ([email or web address]) on 11/18/24 at 14:54. Electronically submitted by Cecil Buckley ([email or web address]). DIAZ RITTER DO Nov 18, 2024 13:07
--- NOTE | 2024-11-18 13:18 | DVH ---
CLINICAL INFORMATION: Left rib pain. Recent pneumonia. TECHNIQUE: Axial CT imaging of the chest was performed without IV contrast. Sagittal and coronal ref ormatted images were made, stored and reviewed. Evaluation is limited without IV contrast. One or mor e of the following dose reduction techniques were used: Automated exposure control. Adjustment of mA and/or kV according to patient size. CTDIvol = 16.33 mGy DLP = 553.43 mGy-cm COMPARISON: Radiographs dated 11/02/2024. FINDINGS: Aorta: Mild atherosclerotic calcification. No aneurysm. Cardiac: Heart size is within normal limits. Dense coronary artery calcification. Mediastinum/radha: No mass or adenopathy. Lungs: Respiratory motion artifact limits evaluation for subtle findings. Small left pleural effusion with overlying atelectasis and consolidation in the left lower lobe. Atelectasis and/or developing c onsolidation in the lingula. Patchy areas of consolidation and ground-glass attenuation are seen in t he right upper lobe. Additional scattered areas of subsegmental atelectasis are seen in both lungs. N o pneumothorax. Pulmonary arteries: No gross abnormality. Chest wall: No mass or other abnormality. Upper abdomen: Cholecystectomy. Bones: No fracture or suspicious intraosseous lesions. IMPRESSION: 1. Small left pleural effusion with overlying atelectasis and consolidation. 2. Multifocal patchy airspace consolidations and ground-glass opacities, likely infectious or inflamm atory in nature, including multifocal pneumonia. Correlate with clinical findings. 3. No acute osseous abnormality identified. No evidence of acute rib fracture
[2024-11-18 13:30] LABS: Basophils # (auto) 0 10 ^3/uL (0-0.2); Basophils % (auto) 0.4 % (0.0-2.0); Eosinophils # (auto) 0.7 10 ^3/uL (0-0.8); Eosinophils % (auto) 7.9 % (0.0-7.0); Hematocrit 40.9 % (41.0-53.0); Hemoglobin 13.9 g/dL (13.5-17.5); Lymphocytes # (auto) 1.9 10 ^3/uL (0.4-5.4); Lymphocytes % (auto) 20.3 % (10.0-50.0); Mean Corpuscular Hemoglobin 29.7 pg (28.0-32.0); Mean Corpuscular Hgb Conc. 33.8 g/dL (32.0-36.0); Mean Corpuscular Volume 87.7 fL (80.0-100.0); Monocytes # (auto) 1.1 10 ^3/uL (0-1.3); Monocytes % (auto) 12.1 % (0.0-12.0); Neutrophils # (auto) 5.4 10 ^3/uL (1.6-8.6); Neutrophils % (auto) 59.3 % (37.0-80.0); Nucleated Red Blood Cells % 0.1 %; Platelet Count (auto) 416 10^3/uL (140-450); Red Blood Cells 4.67 10^6/uL (4.5-5.90); Red Cell Distribution Width 13.7 % (11.8-14.3); White Blood Cell 9.2 10^3/uL (4.4-10.8)
[2024-11-18 13:43] LABS: Albumin 3.7 g/dL (3.2-4.8); Alkaline Phosphatase 92 U/L (46-116); Anion Gap 7 (5-15); Aspartate Aminotransferase 29 U/L (13-40); Bilirubin, Total 0.7 mg/dL (0.2-1.0); Calcium 9.5 mg/dL (8.7-10.4); Carbon Dioxide 24 mmol/L (20-31); Chloride 101 mmol/L (98-107); Total Protein 7.3 g/dL (5.7-8.2)
[2024-11-18 13:45] LABS: Alanine Aminotransferase 52 U/L (7-40); Blood Urea Nitrogen 38 mg/dL (9-23); Glucose 296 mg/dL (74-106); Lipase 143 U/L (12-53); Potassium 5.4 mmol/L (3.5-5.1); Sodium 132 mmol/L (136-145)
[2024-11-18 13:58] LABS: Urine Bacteria None Seen /hpf (None Seen)
[2024-11-18 14:15] LABS: Urine Blood Negative /uL (Negative); Urine Clarity Clear (Clear); Urine Color Yellow (Yellow); Urine Mucus FEW (None Seen); Urine Protein, UAD Negative (Negative); Urine Specific Gravity 1.016 (1.001-1.035); Urine Squamous Epithelial Cell FEW /hpf (<5); Urine Urobilinogen Normal (Negative); Urine WBC 3 /HPF (0-3); Urine pH 5.5 (5.0-9.0)
[2024-11-18] MEDS: PIPERACILLIN-TAZOB 3.375GM 100 ML IV ONE (14:58)
--- NOTE | 2024-11-18 16:41 | DVHHP2 ---
Admitting Diagnosis: Rib pain History of Present Illness 68 y/o M presents with son for c/o mid-axillary line, left-lower rib pain. Pain is intermittent. No alleviating or precipitating factors. Pain sometimes radiates to the posterior ribcage. Patient was seen and admitted at [facility] 2x weeks ago for PNA. Discharge on O2. Patient presents on 2LPM nasal cannula. Denies any chest pain, shortness of breath, cough, congestion, fever, chills, or further associated symptoms at this time. Patient is currently symptoms free Past Medical History: DM, HTN, 2LPM O2 s/p PNA diagnosis Past Surgical History: denies REVIEW OF SYSTEMS: CONSTITUTIONAL: Denies acute: fever, diaphoresis, chills, generalized weakness. HEAD: Denies acute: headache, photophobia Eyes: Denies acute: Double vision, vision loss, eye pain, eye discharge. EARS: Denies acute: tinnitus, hearing loss, ear discharge, ear pain, THROAT: Denies acute: sore throat, swelling, difficulty swallowing , pain with swallowing, change in voice. NECK: Denies acute: neck pain, neck swelling, stiff neck. HEART: Denies acute : chest pain, palpitations, LUNGS: Denies acute: SOB, wheezing, cough, hemoptysis ABDOMEN: Denies acute: abdominal pain, Nausea, Vomiting, diarrhea, melena , hematemesis, hematochezia SKIN: Denies acute: rash, redness, lesions, itchiness. EXTREMITIES: Denies acute: calf pain, numbness, tingling, weakness, denies pain in extremity. Denies acute: Low back pain. Neuro: Denies acute: focal neurological deficit, motor or sensory focal neurological deficit, tremors, seizure like activity, confusion, dizziness, change in mental status, loss of bowel or bladder function, cauda equina like symptoms. : Denies acute: dysuria, hematuria, flank pain, increase in urinary frequency. PSYCH: Denies acute: hallucination, suicidal ideation, homicidal ideation. Patient Family History: Patient reports no known family medical history. Allergies: Coded Allergies: NO KNOWN ALLERGIES (Unverified , 10/28/24) Home Meds Active Scripts Clindamycin Hcl (Clindamycin Hcl) 300 Mg Cap, 1 CAP PO TID, #21 CAP Prov:SUKH MORALES MD 11/03/24 Reported Medications Amlodipine Besylate (Amlodipine Besylate) 5 Mg Tab, 5 MG PO BID for BLOOD PRESSURE, TAB 10/28/24 Losartan Potassium (Losartan Potassium) 100 Mg Tab, 100 MG PO BID for BLOOD PRESSURE, TAB 10/28/24 Metformin Hydrochloride (Metformin Hcl) 500 Mg Tab, 500 MG PO DAILY for DIABETES, TAB 10/28/24 Current Medications Current Medications Medications (Trade) Dose Ordered Sig/Roxann Route PRN Reason Start Time Stop Time Status Last Admin Sodium Chloride (Saline Lock Ns) 10 ml Q8HR IV 11/18/24 22:00 Docusate Sodium (Colace Capsule) 100 mg BIDPRN PRN PO FOR CONSTIPATION 11/18/24 16:45 Acetaminophen (Tylenol Tablet) 650 mg Q6HP PRN PO PAIN SCALE 1-3 OR TEMP>100.4 11/18/24 16:45 Acetaminophen/ Hydrocodone Bitart ([place] 5/325MG Tab) 1 tab Q4HP PRN PO MODERATE PAIN (4-6 PAIN SCALE) 11/18/24 16:45 Ondansetron HCl (Zofran) 4 mg Q4HP PRN IV NAUSEA / VOMITING 11/18/24 16:45 Amlodipine Besylate (Norvasc Tablet) 5 mg BID PO 11/18/24 22:00 Losartan Potassium (Cozaar Tablet) 100 mg BID PO 11/18/24 22:00 Diagnostic Test (Pha) (Accu-Chek Comfort Curve T) 1 strip ACHS 11/18/24 17:00 11/18/24 17:57 Insulin Human Regular (InsuLIN R) ACHS SC 11/18/24 17:00 11/18/24 17:55 Dextrose 50 ml UD PRN IV Blood Sugar LESS THAN 60 11/18/24 16:45 Vital Signs Vital Signs Date Time Temp Pulse Resp B/P (MAP) Pulse Ox O2 Delivery O2 Flow Rate FiO2 11/18/24 18:00 93 14 92/60 (71) 97 11/18/24 16:22 98.4 98.4 11/18/24 14:44 Nasal Cannula* 3 32 Physical Exam Generally-68 years old male, well nourished well developed. No apparent distress HEENT-atraumatic, normocephalic Heart-regular rate and rhythm Lungs decreased breath sounds bilaterally Abdomen soft nontender nondistended Musculoskeletal-no edema cyanosis Neuro-AO x3, no focal deficits Results Labs Test 11/18/24 17:29 11/18/24 13:03 11/18/24 12:54 Range/Units POC Glucose 189 H 70-106 mg/dl White Blood Count 9.2 4.4-10.8 10^3/uL Red Blood Count 4.67 4.5-5.90 10^6/uL Hemoglobin 13.9 13.5-17.5 g/dL Hematocrit 40.9 L 41.0-53.0 % Mean Corpuscular Volume 87.7 80.0-100.0 fL Mean Corpuscular Hemoglobin 29.7 28.0-32.0 pg Mean Corpuscular Hemoglobin Concent 33.8 32.0-36.0 g/dL Red Cell Distribution Width 13.7 11.8-14.3 % Platelet Count 416 140-450 10^3/uL Mean Platelet Volume 7.1 6.9-10.8 fL Neutrophils (%) (Auto) 59.3 37.0-80.0 % Lymphocytes (%) (Auto) 20.3 10.0-50.0 % Monocytes (%) (Auto) 12.1 H 0.0-12.0 % Eosinophils (%) (Auto) 7.9 H 0.0-7.0 % Basophils (%) (Auto) 0.4 0.0-2.0 % Neutrophils # (Auto) 5.4 1.6-8.6 10 ^3/uL Lymphocytes # (Auto) 1.9 0.4-5.4 10 ^3/uL Monocytes # (Auto) 1.1 0-1.3 10 ^3/uL Eosinophils # (Auto) 0.7 0-0.8 10 ^3/uL Basophils # (Auto) 0 0-0.2 10 ^3/uL Nucleated Red Blood Cells 0.1 % Sodium Level 132 L 136-145 mmol/L Potassium Level 5.4 H 3.5-5.1 mmol/L Chloride Level 101 98-107 mmol/L Carbon Dioxide Level 24 20-31 mmol/L Anion Gap 7 5-15 Blood Urea Nitrogen 38 H 9-23 mg/dL Creatinine 2.11 H 0.700-1.30 mg/dL Glomerular Filtration Rate Calc 33 >90 mL/min BUN/Creatinine Ratio 18.0 10.0-20.0 Serum Glucose 296 H 74-106 mg/dL Lactic Acid Level 2.0 0.4-2.0 mmol/L Calcium Level 9.5 8.7-10.4 mg/dL Total Bilirubin 0.7 0.2-1.0 mg/dL Aspartate Amino Transferase (AST) 29 13-40 U/L Alanine Aminotransferase (ALT) 52 H 7-40 U/L Alkaline Phosphatase 92 46-116 U/L Troponin I High Sensitivity 3 L </=54 ng/L C-Reactive Protein High Sensitivity 13.45 H <1.0 mg/dL Total Protein 7.3 5.7-8.2 g/dL Albumin 3.7 3.2-4.8 g/dL Lipase 143 H 12-53 U/L Urine Color Yellow Yellow Urine Clarity Clear Clear Urine pH 5.5 5.0-9.0 Urine Specific [place] 1.016 1.001-1.035 Urine Protein Negative Negative Urine Ketones Negative Negative Urine Blood Negative Negative /uL Urine Nitrite Negative Negative Urine Bilirubin Negative Negative Urine Urobilinogen Normal Negative mg/dL Urine Leukocyte Esterase Trace Negative /uL Urine RBC 1 0 - 3 /hpf Urine Microscopic WBC 3 0-3 /HPF Urine Squamous Epithelial Cells Few <5 /hpf Urine Bacteria None seen None Seen /hpf Urine Mucus Few None Seen Urine Glucose Normal Normal mg/dL Primary Diagnosis Multifocal pneumonia Acute hypoxic requiring oxygen CKD Plan Patient was recently admitted. Renal function slowly improving Trend renal function CT scan shows multifocal pneumonia. Start Zosyn for broad-spectrum antibiotics. Check procalcitonin, CRP Check sputum culture, UA, blood culture Oxygen saturation goal greater than 92% insulin ss Resume amlodipine and losartan. Hold BP meds if BP < 95, HR 55 Full code Heparin for DVT prophylaxis Regular diet Plan discussed with: Patient Problems List: (1) Multifocal pneumonia Status: Acute (2) Respiratory distress Status: Acute Date of Service: Nov 18, 2024 Billing Provider: ZAINAB TELLO MD Common Visit Codes: [id number] INP/OBS CARE (HIGH) ZAINAB TELLO MD Nov 18, 2024 16:41
[2024-11-18] MEDS ORDERED: ONDANSETRON HCL 4 MG/2 ML VIAL IV PRN (16:45)
[2024-11-18] MEDS ORDERED: DEXTROSE (50%) 50ML SYRG IV PRN (16:45)
[2024-11-18] MEDS: InsuLIN REG 1unit/0.01ml Soln (100units/ml) SC SCH (17:55)
[2024-11-18] MEDS: ACCU-CHEK COMFORT CURVE STRIP VI SCH (17:57)
[2024-11-18] MEDS: SODIUM CHLORIDE 0.9% 1,000 ML IV ONE (18:00)
[2024-11-18 19:15] LABS: Chloride 104 mmol/L (98-107)
[2024-11-18 19:16] LABS: Anion Gap 5 (5-15); Carbon Dioxide 25 mmol/L (20-31)
[2024-11-18 19:17] LABS: Calcium 9.5 mg/dL (8.7-10.4)
[2024-11-18 19:21] LABS: BUN/Creatinine Ratio 17.9 (10.0-20.0)
[2024-11-18 19:22] LABS: Blood Urea Nitrogen 39 mg/dL (9-23); Glucose 251 mg/dL (74-106); Sodium 134 mmol/L (136-145)
[2024-11-18 19:24] LABS: Potassium 6.3 mmol/L (3.5-5.1)
[2024-11-18] MEDS: DEXTROSE (50%) 50ML SYRG IV ONE (19:56)
[2024-11-18] MEDS: SODIUM ZIRCONIUM CYCL 10 GM PAK PO ONE (19:56)
[2024-11-18] MEDS: ALBUTEROL SULF 2.5 MG/0.5ML(0.5%) NEB SOLN NEB ONE (19:59)
[2024-11-18] MEDS: InsuLIN REG 1unit/0.01ml Soln (100units/ml) IV ONE (20:02)
[2024-11-18] MEDS: amLODIPine BESYLATE 5 MG TAB PO SCH (21:56)
[2024-11-18] MEDS: LOSARTAN POTASSIUM 50 MG TAB PO SCH (21:57)
[2024-11-18] MEDS: SODIUM CHLOR 0.9% PF (SALINE LOCK) 10ML VIAL/SYR IV SCH (22:03)
[2024-11-19] VITALS (9 sets, daily range): BP systolic 92–134; BP diastolic 61–121; PULSE 90–114; RESP 16–20; TEMP 97.7–99.3; O2SAT 91–96
[2024-11-19 07:29] LABS: Basophils # (auto) 0 10 ^3/uL (0-0.2); Basophils % (auto) 0.3 % (0.0-2.0); Eosinophils # (auto) 0.6 10 ^3/uL (0-0.8); Eosinophils % (auto) 7.3 % (0.0-7.0); Hematocrit 37.8 % (41.0-53.0); Hemoglobin 12.7 g/dL (13.5-17.5); Lymphocytes # (auto) 1.3 10 ^3/uL (0.4-5.4); Lymphocytes % (auto) 14.5 % (10.0-50.0); Mean Corpuscular Hemoglobin 29.7 pg (28.0-32.0); Mean Corpuscular Hgb Conc. 33.7 g/dL (32.0-36.0); Mean Corpuscular Volume 88.2 fL (80.0-100.0); Monocytes # (auto) 1.1 10 ^3/uL (0-1.3); Monocytes % (auto) 12.3 % (0.0-12.0); Neutrophils # (auto) 5.8 10 ^3/uL (1.6-8.6); Neutrophils % (auto) 65.6 % (37.0-80.0); Nucleated Red Blood Cells % 0.2 %; Platelet Count (auto) 388 10^3/uL (140-450); Red Blood Cells 4.29 10^6/uL (4.5-5.90); Red Cell Distribution Width 13.5 % (11.8-14.3); White Blood Cell 8.8 10^3/uL (4.4-10.8)
[2024-11-19 07:53] LABS: Alkaline Phosphatase 80 U/L (46-116); Anion Gap 8 (5-15); Calcium 9.8 mg/dL (8.7-10.4); Carbon Dioxide 23 mmol/L (20-31); Chloride 106 mmol/L (98-107); Glucose 92 mg/dL (74-106); Sodium 137 mmol/L (136-145); Total Protein 7.3 g/dL (5.7-8.2)
[2024-11-19 07:54] LABS: Albumin 3.6 g/dL (3.2-4.8); Aspartate Aminotransferase 31 U/L (13-40)
[2024-11-19 07:55] LABS: Bilirubin, Total 0.6 mg/dL (0.2-1.0)
[2024-11-19 07:58] LABS: Alanine Aminotransferase 44 U/L (7-40); Blood Urea Nitrogen 32 mg/dL (9-23); Potassium 5.5 mmol/L (3.5-5.1)
[2024-11-19] MEDS ORDERED: VANCOMYCIN PER PHARMACY 0 MG IV SCH (19:45)
[2024-11-19] MEDS: HYDROcodone-ACET 5/325MG TAB PO PRN (20:16)
[2024-11-19] MEDS: VANCOMYCIN 1.5GM/300ML 300 ML IV ONE (20:29)
[2024-11-19] MEDS: PIPERACILLIN-TAZOB 3.375GM 100 ML IV SCH (21:30)
[2024-11-19 21:45] LABS: Albumin 3.6 g/dL (3.2-4.8); Alkaline Phosphatase 83 U/L (46-116); Anion Gap 7 (5-15); Aspartate Aminotransferase 33 U/L (13-40); BUN/Creatinine Ratio 15.7 (10.0-20.0); Calcium 9.3 mg/dL (8.7-10.4); Carbon Dioxide 23 mmol/L (20-31); Chloride 104 mmol/L (98-107); Total Protein 7.2 g/dL (5.7-8.2)
[2024-11-19 21:46] LABS: Bilirubin, Total 0.5 mg/dL (0.2-1.0)
[2024-11-19 21:48] LABS: Alanine Aminotransferase 47 U/L (7-40); Blood Urea Nitrogen 32 mg/dL (9-23); Glucose 227 mg/dL (74-106); Potassium 5.3 mmol/L (3.5-5.1); Sodium 134 mmol/L (136-145)
--- NOTE | 2024-11-19 22:15 | DVHPN2 ---
Subjective The patient is seen and examined at bedside. Complain of shortness for breath. Reviewed: Care Plan, H&P, Labs, Medications, Previous Orders, Radiology Changes from previous H/P or p: No Changes Objective Vitals Vital Signs Date Time Temp Pulse Resp B/P (MAP) Pulse Ox O2 Delivery O2 Flow Rate FiO2 11/19/24 21:36 120/74 11/19/24 20:00 102 Nasal Cannula* 2 28 11/19/24 16:58 98.2 20 96 98.2 Intake/Output Intake and Output 11/19/24 07:00 Intake Total 350 ml Output Total 500 ml Balance -150 ml Intake Oral 350 ml Output Urine Total 500 ml General Appearance: Alert, Oriented X3, Cooperative, No acute distress HEENT: Atraumatic, PERRLA, EOMI, Mucous membr. moist/pink Neck: Supple Lungs: Clear to auscultation, Normal air movement Cardiovascular: Regular rate, Normal S1, Normal S2, No murmurs, Gallops, Rubs Abdomen: Normal bowel sounds, Soft, No tenderness Neuro: Cranial nerves 3-12 NL Psych/Mental Status: Mental status NL Medications Current Medications Medications Dose Ordered Sig/Roxann Route Start Time Stop Time Status Last Admin Dose Admin Sodium Chloride 10 ml Q8HR IV 11/18/24 22:00 11/19/24 21:30 10 ML Docusate Sodium 100 mg BIDPRN PRN PO 11/18/24 16:45 Acetaminophen 650 mg Q6HP PRN PO 11/18/24 16:45 Acetaminophen/ Hydrocodone Bitart 1 tab Q4HP PRN PO 11/18/24 16:45 11/19/24 20:16 1 TAB Ondansetron HCl 4 mg Q4HP PRN IV 11/18/24 16:45 Amlodipine Besylate 5 mg BID PO 11/18/24 22:00 11/19/24 21:35 5 MG Losartan Potassium 100 mg BID PO 11/18/24 22:00 11/19/24 21:36 100 MG Diagnostic Test (Pha) 1 strip ACHS 11/18/24 17:00 11/19/24 21:36 1 STRIP Insulin Human Regular ACHS SC 11/18/24 17:00 11/19/24 21:31 3 UNITS Dextrose 50 ml UD PRN IV 11/18/24 16:45 Vancomycin HCl 0 ml @ 0 mls/hr UD IV 11/19/24 19:45 UNV Piperacillin Sod/ Tazobactam Sod 100 ml @ 25 mls/hr Q8HR IV 11/19/24 22:00 11/19/24 21:30 25 MLS/HR Laboratory Results Laboratory Tests 11/19/24 06:44 11/19/24 21:05 Chemistry Test 11/19/24 06:44 11/19/24 21:05 Albumin 3.6 g/dL (3.2-4.8) 3.6 g/dL (3.2-4.8) Calcium Level 9.8 mg/dL (8.7-10.4) 9.3 mg/dL (8.7-10.4) Total Protein 7.3 g/dL (5.7-8.2) 7.2 g/dL (5.7-8.2) LFT Test 11/19/24 06:44 11/19/24 21:05 Alanine Aminotransferase (ALT) 44 U/L (7-40) H 47 U/L (7-40) H Alkaline Phosphatase 80 U/L (46-116) 83 U/L (46-116) Aspartate Amino Transferase (AST) 31 U/L (13-40) 33 U/L (13-40) Total Bilirubin 0.6 mg/dL (0.2-1.0) 0.5 mg/dL (0.2-1.0) Urinalysis Test 11/18/24 12:54 Urine Color Yellow (Yellow) Urine Clarity Clear (Clear) Urine pH 5.5 (5.0-9.0) Urine Specific [place] 1.016 (1.001-1.035) Urine Protein Negative (Negative) Urine Ketones Negative (Negative) Urine Blood Negative /uL (Negative) Urine Nitrite Negative (Negative) Urine Bilirubin Negative (Negative) Urine Urobilinogen Normal mg/dL (Negative) Urine Leukocyte Esterase Trace /uL (Negative) Urine RBC 1 /hpf (0 - 3) Urine Microscopic WBC 3 /HPF (0-3) Urine Squamous Epithelial Cells Few /hpf (<5) Urine Bacteria None seen /hpf (None Seen) Urine Mucus Few (None Seen) Urine Glucose Normal mg/dL (Normal) Microbiology Microbiology Date/Time Source Procedure Growth Status 11/18/24 17:14 Blood Blood Culture - Preliminary NO GROWTH AFTER 24 HOURS OF INCUBATION. Resulted Labs and/or images reviewed: Labs reviewed by me Assessment/Plan Assessment/Plan Multifocal pneumonia Acute hypoxic requiring oxygen Acute kidney injury CKD stage III Hypertension Plan Continuing current management. Continuing with vancomycin and Zosyn IV antibiotic. We will follow up with culture. Continuing with sliding scale insulin Continuing with hypertensive medication amlodipine and losartan. This medical document was created using an electronic medical record system with [employer] direct computerized dictation system. Although this document has been carefully reviewed, there may still be some phonetic and typographical errors. These areas are purely typographical due to imperfections of the software programs, and do not reflect any compromise in the patient's medical care. Plan discussed with: Patient Date of Service: Nov 19, 2024 Billing Provider: PERRY GARDUNO MD Common Visit Codes: [id number] INP/OBS CARE(HIGH) PERRY GARDUNO MD Nov 19, 2024 22:15
[2024-11-20] VITALS (10 sets, daily range): BP systolic 101–127; BP diastolic 65–80; PULSE 84–114; RESP 16–20; TEMP 97.8–100.5; O2SAT 87–97
[2024-11-20 07:45] LABS: Basophils # (auto) 0 10 ^3/uL (0-0.2); Basophils % (auto) 0.5 % (0.0-2.0); Eosinophils # (auto) 1.2 10 ^3/uL (0-0.8); Eosinophils % (auto) 13.3 % (0.0-7.0); Hematocrit 37.9 % (41.0-53.0); Hemoglobin 12.5 g/dL (13.5-17.5); Lymphocytes # (auto) 1.4 10 ^3/uL (0.4-5.4); Lymphocytes % (auto) 16.5 % (10.0-50.0); Mean Corpuscular Hemoglobin 29.3 pg (28.0-32.0); Mean Corpuscular Volume 88.6 fL (80.0-100.0); Monocytes # (auto) 1.2 10 ^3/uL (0-1.3); Monocytes % (auto) 13.2 % (0.0-12.0); Neutrophils # (auto) 4.9 10 ^3/uL (1.6-8.6); Neutrophils % (auto) 56.5 % (37.0-80.0); Platelet Count (auto) 388 10^3/uL (140-450); Red Blood Cells 4.27 10^6/uL (4.5-5.90); Red Cell Distribution Width 13.8 % (11.8-14.3); White Blood Cell 8.7 10^3/uL (4.4-10.8)
[2024-11-20 08:12] LABS: Albumin 3.7 g/dL (3.2-4.8); Anion Gap 10 (5-15); BUN/Creatinine Ratio 14.7 (10.0-20.0); Bilirubin, Total 0.9 mg/dL (0.2-1.0); Calcium 9.4 mg/dL (8.7-10.4); Carbon Dioxide 22 mmol/L (20-31); Chloride 103 mmol/L (98-107); Potassium 4.8 mmol/L (3.5-5.1); Total Protein 7.5 g/dL (5.7-8.2)
[2024-11-20 08:16] LABS: Alanine Aminotransferase 67 U/L (7-40); Alkaline Phosphatase 169 U/L (46-116); Aspartate Aminotransferase 59 U/L (13-40); Blood Urea Nitrogen 29 mg/dL (9-23); Glucose 112 mg/dL (74-106); Sodium 135 mmol/L (136-145)
--- NOTE | 2024-11-20 10:50 | ECG ---
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
--- NOTE | 2024-11-20 11:35 | DVHPN2 ---
Subjective The patient is seen and examined at bedside. Complain of shortness for breath. Reviewed: Care Plan, H&P, Labs, Medications, Previous Orders, Radiology Objective Vitals Vital Signs Date Time Temp Pulse Resp B/P (MAP) Pulse Ox O2 Delivery O2 Flow Rate FiO2 11/20/24 10:04 127/74 11/20/24 08:22 98.6 84 17 93 98.6 11/20/24 08:00 Nasal Cannula* 2 28 Intake/Output Intake and Output 11/20/24 07:00 Intake Total 1250 ml Output Total 800 ml Balance 450 ml Intake Oral 250 ml IV Total 1000 ml Output Urine Total 800 ml # Voids 2 General Appearance: Alert, Oriented X3, Cooperative, No acute distress HEENT: Atraumatic, PERRLA, EOMI, Mucous membr. moist/pink Neck: Supple Lungs: Clear to auscultation, Normal air movement Cardiovascular: Regular rate, Normal S1, Normal S2, No murmurs, Gallops, Rubs Abdomen: Normal bowel sounds, Soft, No tenderness Neuro: Cranial nerves 3-12 NL Psych/Mental Status: Mental status NL Medications Current Medications Medications Dose Ordered Sig/Roxann Route Start Time Stop Time Status Last Admin Dose Admin Sodium Chloride 10 ml Q8HR IV 11/18/24 22:00 11/20/24 06:33 10 ML Docusate Sodium 100 mg BIDPRN PRN PO 11/18/24 16:45 Acetaminophen 650 mg Q6HP PRN PO 11/18/24 16:45 Acetaminophen/ Hydrocodone Bitart 1 tab Q4HP PRN PO 11/18/24 16:45 11/20/24 10:10 1 TAB Ondansetron HCl 4 mg Q4HP PRN IV 11/18/24 16:45 Amlodipine Besylate 5 mg BID PO 11/18/24 22:00 11/20/24 10:04 5 MG Losartan Potassium 100 mg BID PO 11/18/24 22:00 11/19/24 21:36 100 MG Diagnostic Test (Pha) 1 strip ACHS 11/18/24 17:00 11/20/24 06:34 1 STRIP Insulin Human Regular ACHS SC 11/18/24 17:00 11/19/24 21:31 3 UNITS Dextrose 50 ml UD PRN IV 11/18/24 16:45 Vancomycin HCl 0 ml @ 0 mls/hr UD IV 11/19/24 19:45 Piperacillin Sod/ Tazobactam Sod 100 ml @ 25 mls/hr Q8HR IV 11/19/24 22:00 11/20/24 06:33 25 MLS/HR Laboratory Results Laboratory Tests 11/20/24 07:01 Chemistry Test 11/19/24 21:05 11/20/24 07:01 Albumin 3.6 g/dL (3.2-4.8) 3.7 g/dL (3.2-4.8) Calcium Level 9.3 mg/dL (8.7-10.4) 9.4 mg/dL (8.7-10.4) Total Protein 7.2 g/dL (5.7-8.2) 7.5 g/dL (5.7-8.2) LFT Test 11/19/24 21:05 11/20/24 07:01 Alanine Aminotransferase (ALT) 47 U/L (7-40) H 67 U/L (7-40) H Alkaline Phosphatase 83 U/L (46-116) 169 U/L (46-116) H Aspartate Amino Transferase (AST) 33 U/L (13-40) 59 U/L (13-40) H Total Bilirubin 0.5 mg/dL (0.2-1.0) 0.9 mg/dL (0.2-1.0) Urinalysis Test 11/18/24 12:54 Urine Color Yellow (Yellow) Urine Clarity Clear (Clear) Urine pH 5.5 (5.0-9.0) Urine Specific [place] 1.016 (1.001-1.035) Urine Protein Negative (Negative) Urine Ketones Negative (Negative) Urine Blood Negative /uL (Negative) Urine Nitrite Negative (Negative) Urine Bilirubin Negative (Negative) Urine Urobilinogen Normal mg/dL (Negative) Urine Leukocyte Esterase Trace /uL (Negative) Urine RBC 1 /hpf (0 - 3) Urine Microscopic WBC 3 /HPF (0-3) Urine Squamous Epithelial Cells Few /hpf (<5) Urine Bacteria None seen /hpf (None Seen) Urine Mucus Few (None Seen) Urine Glucose Normal mg/dL (Normal) Microbiology Microbiology Date/Time Source Procedure Growth Status 11/18/24 17:14 Blood Blood Culture - Preliminary NO GROWTH AFTER 24 HOURS OF INCUBATION. Resulted Assessment/Plan Assessment/Plan Multifocal pneumonia Acute hypoxic requiring oxygen Acute kidney injury CKD stage III Hypertension Plan Continuing current management. Continuing with vancomycin and Zosyn IV antibiotic. We will follow up with culture. Continuing with sliding scale insulin Continuing with hypertensive medication amlodipine and losartan. This medical document was created using an electronic medical record system with M*[employer]app[employer] direct computerized dictation system. Although this document has been carefully reviewed, there may still be some phonetic and typographical errors. These areas are purely typographical due to imperfections of the software programs, and do not reflect any compromise in the patient's medical care. PERRY GARDUNO MD Nov 20, 2024 11:35
[2024-11-20] MEDS: SODIUM ZIRCONIUM CYCL 10 GM PAK PO ONE (13:32)
[2024-11-20] MEDS: guaiFENesin-DM 100/10mg/5ml SYR PO PRN (16:56)
[2024-11-20] MEDS: ACETAMINOPHEN 325 MG TAB PO PRN (19:57)
[2024-11-20] MEDS ORDERED: VANCOMYCIN 750MG KIT 100 ML IV SCH (20:00)
[2024-11-21] VITALS (9 sets, daily range): BP systolic 103–126; BP diastolic 64–73; PULSE 68–118; RESP 16–18; TEMP 98–99.6; O2SAT 94–97
[2024-11-21 07:58] LABS: Basophils # (auto) 0 10 ^3/uL (0-0.2); Basophils % (auto) 0.4 % (0.0-2.0); Eosinophils # (auto) 1.2 10 ^3/uL (0-0.8); Hematocrit 39.4 % (41.0-53.0); Hemoglobin 13.2 g/dL (13.5-17.5); Lymphocytes # (auto) 1.5 10 ^3/uL (0.4-5.4); Mean Corpuscular Hemoglobin 29.7 pg (28.0-32.0); Mean Corpuscular Hgb Conc. 33.5 g/dL (32.0-36.0); Mean Corpuscular Volume 88.8 fL (80.0-100.0); Monocytes # (auto) 1.3 10 ^3/uL (0-1.3); Monocytes % (auto) 13.5 % (0.0-12.0); Neutrophils # (auto) 5.3 10 ^3/uL (1.6-8.6); Neutrophils % (auto) 57.1 % (37.0-80.0); Nucleated Red Blood Cells % 0.2 %; Platelet Count (auto) 427 10^3/uL (140-450); Red Blood Cells 4.43 10^6/uL (4.5-5.90); Red Cell Distribution Width 13.6 % (11.8-14.3); White Blood Cell 9.3 10^3/uL (4.4-10.8)
[2024-11-21 08:30] LABS: Anion Gap 10 (5-15); BUN/Creatinine Ratio 12.6 (10.0-20.0); Calcium 9.5 mg/dL (8.7-10.4); Carbon Dioxide 23 mmol/L (20-31); Chloride 101 mmol/L (98-107); Potassium 4.9 mmol/L (3.5-5.1); Total Protein 7.8 g/dL (5.7-8.2)
[2024-11-21 08:31] LABS: Albumin 3.8 g/dL (3.2-4.8); Bilirubin, Total 0.9 mg/dL (0.2-1.0)
[2024-11-21 08:42] LABS: Alanine Aminotransferase 68 U/L (7-40); Alkaline Phosphatase 218 U/L (46-116); Aspartate Aminotransferase 52 U/L (13-40); Blood Urea Nitrogen 25 mg/dL (9-23); Glucose 134 mg/dL (74-106); Sodium 134 mmol/L (136-145)
--- NOTE | 2024-11-21 12:38 | DVHPN2 ---
Reviewed: Care Plan, H&P, Labs, Medications, Previous Orders, Radiology Changes from previous H/P or p: No Changes Objective Vitals Vital Signs Date Time Temp Pulse Resp B/P (MAP) Pulse Ox O2 Delivery O2 Flow Rate FiO2 11/21/24 10:00 94 Nasal Cannula* 2 28 11/21/24 10:00 95/66 11/21/24 09:00 98.1 68 16 98.1 Intake/Output Intake and Output 11/21/24 07:00 Intake Total 1200 ml Output Total 1950 ml Balance -750 ml Intake Oral 1000 ml IV Total 200 ml Output Urine Total 1950 ml General Appearance: Alert, Oriented X3, Cooperative, No acute distress HEENT: Atraumatic, PERRLA, EOMI, Mucous membr. moist/pink Neck: Supple Lungs: Clear to auscultation, Normal air movement Cardiovascular: Regular rate, Normal S1, Normal S2, No murmurs, Gallops, Rubs Abdomen: Normal bowel sounds, Soft, No tenderness Neuro: Cranial nerves 3-12 NL Psych/Mental Status: Mental status NL Medications Current Medications Medications Dose Ordered Sig/Roxann Route Start Time Stop Time Status Last Admin Dose Admin Sodium Chloride 10 ml Q8HR IV 11/18/24 22:00 11/21/24 05:42 10 ML Docusate Sodium 100 mg BIDPRN PRN PO 11/18/24 16:45 Acetaminophen 650 mg Q6HP PRN PO 11/18/24 16:45 11/20/24 19:57 650 MG Acetaminophen/ Hydrocodone Bitart 1 tab Q4HP PRN PO 11/18/24 16:45 11/20/24 18:30 1 TAB Ondansetron HCl 4 mg Q4HP PRN IV 11/18/24 16:45 Amlodipine Besylate 5 mg BID PO 11/18/24 22:00 11/21/24 08:35 5 MG Losartan Potassium 100 mg BID PO 11/18/24 22:00 11/20/24 21:43 100 MG Diagnostic Test (Pha) 1 strip ACHS 11/18/24 17:00 11/21/24 12:22 1 STRIP Insulin Human Regular ACHS SC 11/18/24 17:00 11/21/24 12:23 6 UNITS Dextrose 50 ml UD PRN IV 11/18/24 16:45 Vancomycin HCl 0 ml @ 0 mls/hr UD IV 11/19/24 19:45 Piperacillin Sod/ Tazobactam Sod 100 ml @ 25 mls/hr Q8HR IV 11/19/24 22:00 11/21/24 05:42 25 MLS/HR Guaifenesin/ Dextromethorphan 10 ml Q6HPRN PRN PO 11/20/24 17:00 11/21/24 08:35 10 ML Laboratory Results Laboratory Tests 11/21/24 06:50 Chemistry Test 11/21/24 06:50 Albumin 3.8 g/dL (3.2-4.8) Calcium Level 9.5 mg/dL (8.7-10.4) Total Protein 7.8 g/dL (5.7-8.2) LFT Test 11/21/24 06:50 Alanine Aminotransferase (ALT) 68 U/L (7-40) H Alkaline Phosphatase 218 U/L (46-116) H Aspartate Amino Transferase (AST) 52 U/L (13-40) H Total Bilirubin 0.9 mg/dL (0.2-1.0) Urinalysis Test 11/18/24 12:54 Urine Color Yellow (Yellow) Urine Clarity Clear (Clear) Urine pH 5.5 (5.0-9.0) Urine Specific [place] 1.016 (1.001-1.035) Urine Protein Negative (Negative) Urine Ketones Negative (Negative) Urine Blood Negative /uL (Negative) Urine Nitrite Negative (Negative) Urine Bilirubin Negative (Negative) Urine Urobilinogen Normal mg/dL (Negative) Urine Leukocyte Esterase Trace /uL (Negative) Urine RBC 1 /hpf (0 - 3) Urine Microscopic WBC 3 /HPF (0-3) Urine Squamous Epithelial Cells Few /hpf (<5) Urine Bacteria None seen /hpf (None Seen) Urine Mucus Few (None Seen) Urine Glucose Normal mg/dL (Normal) Microbiology Microbiology Date/Time Source Procedure Growth Status 11/19/24 13:15 Nose MRSA Screen - Final Complete 11/18/24 17:14 Blood Blood Culture - Preliminary NO GROWTH AFTER 48 HOURS OF INCUBATION. Resulted Labs and/or images reviewed: Labs reviewed by me, Image(s) reviewed by me Assessment/Plan Assessment/Plan Acute hypoxic respiratory failure: Oxygen by nasal cannula Bilateral community-acquired pneumonia Zosyn vancomycin, blood cultures negative Uncontrolled diabetes: Insulin sliding Hypertension Acute kidney injury on chronic kidney disease , Nephrology consult appreciated Morbid obesity History of hernia repair Echo 55 % ejection fraction Right ankle swelling: Denies any trauma. X-ray Plan discussed with: Patient Date of Service: Nov 21, 2024 Billing Provider: SUKH MORALES MD Common Visit Codes: [id number] INP/OBS CARE(HIGH) SUKH MORALES MD Nov 21, 2024 12:38
--- NOTE | 2024-11-21 14:09 | DVH ---
CLINICAL INDICATION: Pain and swelling right ankle TECHNIQUE: 2 radiographic views of the right ankle were obtained. Comparison: None FINDINGS/IMPRESSION: There is no evidence of acute fracture or dislocation. The visualized joint space is well maintained. The alignment is anatomical. There is no radiopaque foreign body.
[2024-11-21] MEDS ORDERED: VANCOMYCIN 1GM/200ML PM 200 ML IV ONE (15:30)
[2024-11-21 20:06] LABS: COVID19 ANTIGEN SOFIA FIA NEGATIVE (NEGATIVE)
[2024-11-21] MEDS: VANCOMYCIN 1GM/200ML PM 200 ML IV ONE (21:23)
[2024-11-21] MEDS: DOCUSATE SOD 100 MG CAP PO PRN (21:25)
[2024-11-22] VITALS (7 sets, daily range): BP systolic 92–108; BP diastolic 60–70; PULSE 77–107; RESP 17–18; TEMP 98–98.6; O2SAT 91–96
[2024-11-22 07:15] LABS: Basophils # (auto) 0 10 ^3/uL (0-0.2); Basophils % (auto) 0.4 % (0.0-2.0); Eosinophils # (auto) 0.9 10 ^3/uL (0-0.8); Eosinophils % (auto) 11.8 % (0.0-7.0); Hematocrit 36.9 % (41.0-53.0); Hemoglobin 12.4 g/dL (13.5-17.5); Lymphocytes # (auto) 1.3 10 ^3/uL (0.4-5.4); Lymphocytes % (auto) 16.3 % (10.0-50.0); Mean Corpuscular Hemoglobin 29.7 pg (28.0-32.0); Mean Corpuscular Hgb Conc. 33.6 g/dL (32.0-36.0); Mean Corpuscular Volume 88.3 fL (80.0-100.0); Monocytes # (auto) 1.2 10 ^3/uL (0-1.3); Monocytes % (auto) 15.6 % (0.0-12.0); Neutrophils # (auto) 4.4 10 ^3/uL (1.6-8.6); Neutrophils % (auto) 55.9 % (37.0-80.0); Nucleated Red Blood Cells % 0.1 %; Platelet Count (auto) 403 10^3/uL (140-450); Red Blood Cells 4.18 10^6/uL (4.5-5.90); Red Cell Distribution Width 13.6 % (11.8-14.3); White Blood Cell 7.9 10^3/uL (4.4-10.8)
[2024-11-22 07:50] LABS: Albumin 3.5 g/dL (3.2-4.8); Anion Gap 9 (5-15); Bilirubin, Total 0.8 mg/dL (0.2-1.0); Calcium 9.3 mg/dL (8.7-10.4); Carbon Dioxide 23 mmol/L (20-31); Chloride 103 mmol/L (98-107); Potassium 4.3 mmol/L (3.5-5.1); Total Protein 7.3 g/dL (5.7-8.2)
[2024-11-22 07:51] LABS: Alanine Aminotransferase 62 U/L (7-40); Alkaline Phosphatase 260 U/L (46-116); Aspartate Aminotransferase 60 U/L (13-40); Blood Urea Nitrogen 27 mg/dL (9-23); Glucose 125 mg/dL (74-106); Sodium 135 mmol/L (136-145)
--- NOTE | 2024-11-22 11:02 | DVHPN2 ---
Reviewed: Care Plan, H&P, Labs, Medications, Previous Orders, Radiology Changes from previous H/P or p: No Changes Objective Vitals Vital Signs Date Time Temp Pulse Resp B/P (MAP) Pulse Ox O2 Delivery O2 Flow Rate FiO2 11/22/24 09:00 98.1 94 18 97/70 (79) 96 98.1 11/21/24 20:00 Nasal Cannula* 3 32 Intake/Output Intake and Output 11/22/24 07:00 Intake Total 1400 ml Output Total 1500 ml Balance -100 ml Intake Oral 1200 ml IV Total 200 ml Output Urine Total 1500 ml General Appearance: Alert, Oriented X3, Cooperative, No acute distress HEENT: Atraumatic, PERRLA, EOMI, Mucous membr. moist/pink Neck: Supple Lungs: Clear to auscultation, Normal air movement Cardiovascular: Regular rate, Normal S1, Normal S2, No murmurs, Gallops, Rubs Abdomen: Normal bowel sounds, Soft, No tenderness Neuro: Cranial nerves 3-12 NL Psych/Mental Status: Mental status NL Medications Current Medications Medications Dose Ordered Sig/Roxann Route Start Time Stop Time Status Last Admin Dose Admin Sodium Chloride 10 ml Q8HR IV 11/18/24 22:00 11/22/24 05:24 10 ML Docusate Sodium 100 mg BIDPRN PRN PO 11/18/24 16:45 11/21/24 21:31 100 MG Acetaminophen 650 mg Q6HP PRN PO 11/18/24 16:45 11/20/24 19:57 650 MG Acetaminophen/ Hydrocodone Bitart 1 tab Q4HP PRN PO 11/18/24 16:45 11/22/24 08:55 1 TAB Ondansetron HCl 4 mg Q4HP PRN IV 11/18/24 16:45 Amlodipine Besylate 5 mg BID PO 11/18/24 22:00 11/21/24 21:27 5 MG Losartan Potassium 100 mg BID PO 11/18/24 22:00 11/21/24 21:26 100 MG Diagnostic Test (Pha) 1 strip ACHS 11/18/24 17:00 11/22/24 06:20 1 STRIP Insulin Human Regular ACHS SC 11/18/24 17:00 11/21/24 21:29 3 UNITS Dextrose 50 ml UD PRN IV 11/18/24 16:45 Vancomycin HCl 0 ml @ 0 mls/hr UD IV 11/19/24 19:45 Piperacillin Sod/ Tazobactam Sod 100 ml @ 25 mls/hr Q8HR IV 11/19/24 22:00 11/22/24 05:24 25 MLS/HR Guaifenesin/ Dextromethorphan 10 ml Q6HPRN PRN PO 11/20/24 17:00 11/22/24 08:53 10 ML Laboratory Results Laboratory Tests 11/22/24 06:24 Chemistry Test 11/22/24 06:24 Albumin 3.5 g/dL (3.2-4.8) Calcium Level 9.3 mg/dL (8.7-10.4) Total Protein 7.3 g/dL (5.7-8.2) LFT Test 11/22/24 06:24 Alanine Aminotransferase (ALT) 62 U/L (7-40) H Alkaline Phosphatase 260 U/L (46-116) H Aspartate Amino Transferase (AST) 60 U/L (13-40) H Total Bilirubin 0.8 mg/dL (0.2-1.0) Urinalysis Test 11/18/24 12:54 Urine Color Yellow (Yellow) Urine Clarity Clear (Clear) Urine pH 5.5 (5.0-9.0) Urine Specific [place] 1.016 (1.001-1.035) Urine Protein Negative (Negative) Urine Ketones Negative (Negative) Urine Blood Negative /uL (Negative) Urine Nitrite Negative (Negative) Urine Bilirubin Negative (Negative) Urine Urobilinogen Normal mg/dL (Negative) Urine Leukocyte Esterase Trace /uL (Negative) Urine RBC 1 /hpf (0 - 3) Urine Microscopic WBC 3 /HPF (0-3) Urine Squamous Epithelial Cells Few /hpf (<5) Urine Bacteria None seen /hpf (None Seen) Urine Mucus Few (None Seen) Urine Glucose Normal mg/dL (Normal) Microbiology Microbiology Date/Time Source Procedure Growth Status 11/19/24 13:15 Nose MRSA Screen - Final Complete 11/18/24 17:14 Blood Blood Culture - Preliminary NO GROWTH AFTER 72 HOURS OF INCUBATION. Resulted Labs and/or images reviewed: Labs reviewed by me, Image(s) reviewed by me Assessment/Plan Assessment/Plan Acute hypoxic respiratory failure: Oxygen by nasal cannula per minute which is his usual requirement at home Use of home oxygen Bilateral community-acquired pneumonia Zosyn vancomycin, blood cultures negative Uncontrolled diabetes: Insulin sliding Hypertension Acute kidney injury on chronic kidney disease , Nephrology consult appreciated Mary Jane test negative Morbid obesity History of hernia repair Echo 55 % ejection fraction Right ankle swelling: X-ray negative for any fracture Patient's daughter Mima at the bedside and agreeable for the discharge plan Plan discussed with: Patient My Orders Orders - SUKH MORALES MD Procedure Category Date Status Time Rapid Influenza A&B LAB 11/21/24 Logged 12:30 R Ankle 2 View Xray XY 11/21/24 Resulted 12:38 Dietary NOTICE 11/21/24 Transmitted Recommendations 14:41 Date of Service: Nov 22, 2024 Billing Provider: SUKH MORALES MD Common Visit Codes: [id number] INP/OBS CARE(HIGH) SUKH MORALES MD Nov 22, 2024 11:02
[2024-11-22] MEDS ORDERED: ALBUAER3 IN ×2 (11:05)
[2024-11-22] MEDS ORDERED: METH4PAK PO ×2 (11:05)
[2024-11-22] MEDS ORDERED: LEVO500T91 PO ×2 (11:05)
--- NOTE | 2024-11-22 11:10 | DVHDS2 ---
Discharge Summary Date of Admission Nov 18, 2024 at 16:42 Date of Discharge: Nov 22, 2024 Admitting Diagnosis Shortness of breath Wounds: None Labs/Diagnostic Data: Laboratory Results Test 11/22/24 06:24 11/22/24 05:39 11/21/24 17:10 11/18/24 13:03 White Blood Count 7.9 10^3/uL (4.4-10.8) Red Blood Count 4.18 10^6/uL (4.5-5.90) Hemoglobin 12.4 g/dL (13.5-17.5) Hematocrit 36.9 % (41.0-53.0) Mean Corpuscular Volume 88.3 fL (80.0-100.0) Mean Corpuscular Hemoglobin 29.7 pg (28.0-32.0) Mean Corpuscular Hemoglobin Concent 33.6 g/dL (32.0-36.0) Red Cell Distribution Width 13.6 % (11.8-14.3) Platelet Count 403 10^3/uL (140-450) Mean Platelet Volume 6.9 fL (6.9-10.8) Neutrophils (%) (Auto) 55.9 % (37.0-80.0) Lymphocytes (%) (Auto) 16.3 % (10.0-50.0) Monocytes (%) (Auto) 15.6 % (0.0-12.0) Eosinophils (%) (Auto) 11.8 % (0.0-7.0) Basophils (%) (Auto) 0.4 % (0.0-2.0) Neutrophils # (Auto) 4.4 10 ^3/uL (1.6-8.6) Lymphocytes # (Auto) 1.3 10 ^3/uL (0.4-5.4) Monocytes # (Auto) 1.2 10 ^3/uL (0-1.3) Eosinophils # (Auto) 0.9 10 ^3/uL (0-0.8) Basophils # (Auto) 0 10 ^3/uL (0-0.2) Nucleated Red Blood Cells 0.1 % Sodium Level 135 mmol/L (136-145) Potassium Level 4.3 mmol/L (3.5-5.1) Chloride Level 103 mmol/L (98-107) Carbon Dioxide Level 23 mmol/L (20-31) Anion Gap 9 (5-15) Blood Urea Nitrogen 27 mg/dL (9-23) Creatinine 2.07 mg/dL (0.700-1.30) Glomerular Filtration Rate Calc 34 mL/min (>90) BUN/Creatinine Ratio 13.0 (10.0-20.0) Serum Glucose 125 mg/dL (74-106) Calcium Level 9.3 mg/dL (8.7-10.4) Total Bilirubin 0.8 mg/dL (0.2-1.0) Aspartate Amino Transferase (AST) 60 U/L (13-40) Alanine Aminotransferase (ALT) 62 U/L (7-40) Alkaline Phosphatase 260 U/L (46-116) Total Protein 7.3 g/dL (5.7-8.2) Albumin 3.5 g/dL (3.2-4.8) Random Vancomycin Level 17.8 ug/mL (5-10) POC Glucose 118 mg/dl (70-106) SARS-CoV-2 Antigen (Rapid) Negative (NEGATIVE) Lactic Acid Level 2.0 mmol/L (0.4-2.0) Troponin I High Sensitivity 3 ng/L (</=54) C-Reactive Protein High Sensitivity 13.45 mg/dL (<1.0) Lipase 143 U/L (12-53) Test 11/18/24 12:54 Urine Color Yellow (Yellow) Urine Clarity Clear (Clear) Urine pH 5.5 (5.0-9.0) Urine Specific [place] 1.016 (1.001-1.035) Urine Protein Negative (Negative) Urine Ketones Negative (Negative) Urine Blood Negative /uL (Negative) Urine Nitrite Negative (Negative) Urine Bilirubin Negative (Negative) Urine Urobilinogen Normal mg/dL (Negative) Urine Leukocyte Esterase Trace /uL (Negative) Urine RBC 1 /hpf (0 - 3) Urine Microscopic WBC 3 /HPF (0-3) Urine Squamous Epithelial Cells Few /hpf (<5) Urine Bacteria None seen /hpf (None Seen) Urine Mucus Few (None Seen) Urine Glucose Normal mg/dL (Normal) Other Laboratory Tests 11/22/24 06:24 Brief Hx & Hospital Course: 68-year-old male with a history of hypertension diabetes use of home oxygen came in complaining of shortness of breaths. Found to have bilateral community- acquired pneumonia treated with the Zosyn and vancomycin blood cultures negative acute kidney injury resolved seen by cheese tester Mary Jane test negative ejection fraction 55 percent complained of right ankle swelling x-ray negative for any fracture. At the time of discharge patient is on 2 L of oxygen by nasal cannula which is his usual home oxygen use. Afebrile stable vital signs. Patient's daughter Mima at bedside patient is discharged home plan is acceptable to the family. Prescription for Levaquin Ventolin MDI and Medrol Dosepak transmitted to the pharmacy. Social service consult placed for arranging new PCP Consults/Reason for consult None Operations or Procedures CT chest without contrast X-ray left ankle Condition at Discharge: Fair Final Diagnosis/Problems List Acute hypoxic respiratory failure: Oxygen by nasal cannula per minute which is his usual requirement at home Use of home oxygen Bilateral community-acquired pneumonia Zosyn vancomycin, blood cultures negative Uncontrolled diabetes: Insulin sliding Hypertension Acute kidney injury on chronic kidney disease , Nephrology consult appreciated Mary Jane test negative Morbid obesity History of hernia repair Echo 55 % ejection fraction Right ankle swelling: X-ray negative for any fracture Discharge Disposition: Home Discharge Instruct/Medications Diet: Regular Activity: Light activity Follow Up/Referral: Follow up with the primary Dr in 3-4 days Medications: Levaquin Ventolin MDI Medrol Dosepak Transmitted to pharmacy 35 (Time Taken for discharge summary 35 minutes) Discharge Statement: "Patient was advised to return to the ER or call 911 if any headaches, dizziness, shortness of breath, chest pain, abdominal pain, bleeding, fevers, or worsening of medical condition. Patient was counseled about treatment plan, medications, possible side effects, patientverbalized understanding. All questions were answered to the best of my ability. This discharge took greater then 30 minutes in planning, reviewing documentation, counseling the patient, and discussing with other team members." ASSESSMENT ASSESSMENT Hospital Course Improved Assessment Acute hypoxic respiratory failure: Oxygen by nasal cannula per minute which is his usual requirement at home Use of home oxygen Bilateral community-acquired pneumonia Zosyn vancomycin, blood cultures negative Uncontrolled diabetes: Insulin sliding Hypertension Acute kidney injury on chronic kidney disease , Nephrology consult appreciated Mary Jane test negative Morbid obesity History of hernia repair Echo 55 % ejection fraction Right ankle swelling: X-ray negative for any fracture Date of Service: Nov 22, 2024 Billing Provider: SUKH MORALES MD Common Visit Codes: [id number]-[id number] DISCH DAY >30min SUKH MORALES MD Nov 22, 2024 11:10
[2024-11-22] MEDS: VANCOMYCIN 1GM/250ML KIT 250 ML IV ONE (16:15)
== END 2024-11-22 18:45 | disposition home or self-care (01) | DRG 469 ==
LOC: ER 12:21 → OVERFLOW 16:42 → TELE-WESTW 19:40
PROVIDERS: ADMIT Family Medicine; ATTEND Family Medicine
DX: N17.9 Acute kidney failure, unspecified (principal); J96.01 Acute respiratory failure with hypoxia; J15.69 Pneumonia due to other Gram-negative bacteria; E11.22 Type 2 diabetes mellitus with diabetic chronic kidney disease; I12.9 Hypertensive chronic kidney disease with stage 1 through stage 4 chronic kidney disease, or unspecified chronic kidney disease; N18.30 Chronic kidney disease, stage 3 unspecified; E66.01 Morbid (severe) obesity due to excess calories; J15.9 Unspecified bacterial pneumonia; Z68.30 Body mass index [BMI] 30.0-30.9, adult; Z79.899 Other long term (current) drug therapy
CPT/HCPCS: 36415; 71250; 73600; 80048; 80053; 80202; 81001; 82962; 83605; 83690; 84132; 84484; 85025; 86141; 87040; 87081; 87426; 93005; 94640; 96361; 96365; G0378; J1815; J2543

== ENCOUNTER 2025-02-06 10:11 | Outpatient (CLI) | payer MEDICAID ==
[~2025-02-06 10:11] MED LIST changes: +ALBUAER3 IN; +LEVO500T91 PO; +METH4PAK PO
[2025-02-06 10:48] LABS: Urine Protein, UAD Negative (Negative)
[2025-02-06 11:13] LABS: Prostate Specific Antigen 2.04 ng/mL (0.0-4.0)
[2025-02-06 11:38] LABS: Alanine Aminotransferase 21 U/L (7-40); Albumin 4.7 g/dL (3.2-4.8); Alkaline Phosphatase 83 U/L (46-116); Anion Gap 10 (5-15); BUN/Creatinine Ratio 19.3 (10.0-20.0); Bilirubin, Total 0.7 mg/dL (0.2-1.0); Calcium 9.8 mg/dL (8.7-10.4); Carbon Dioxide 20 mmol/L (20-31); Sodium 139 mmol/L (136-145); Total Protein 7.8 g/dL (5.7-8.2)
[2025-02-06 11:39] LABS: Blood Urea Nitrogen 44 mg/dL (9-23); Chloride 109 mmol/L (98-107); Glucose 149 mg/dL (74-106); Potassium 5.2 mmol/L (3.5-5.1)
[2025-02-06 11:44] LABS: Cocaine Screen, Urine Neg (NEGATIVE); Protein, Urine < 6.0 mg/dL (1-14)
[2025-02-06 11:48] LABS: Amphetamine Screen, Urine Neg (NEGATIVE); Barbiturate Scree,Urine Neg (NEGATIVE); Benzodiazephine Screen, Urine Neg (NEGATIVE); Cannabinoid Screen, Urine Neg (NEGATIVE); Opiate Scree,Urine Neg (NEGATIVE); Phencyclidine Screen, Urine Neg (NEGATIVE)
[2025-02-06 11:49] LABS: Triglycerides 74 mg/dL (< 150)
[2025-02-06 11:51] LABS: Cholesterol 151 mg/dL (< 200); HDL Cholesterol 55 mg/dL (40-59)
[2025-02-07 11:02] LABS: Hepatitis A Total Antibody Positive (Negative)
[2025-02-07 11:03] LABS: Hepatitis B Surface Antigen Negative (Negative); Hepatitis C Antibody Negative (Negative)
== END 2025-02-06 17:00 | disposition home or self-care (01) ==
LOC: LAB 10:11
PROVIDERS: ATTEND Internal Medicine
DX: E11.65 Type 2 diabetes mellitus with hyperglycemia (principal); R74.01 Elevation of levels of liver transaminase levels; Z79.899 Other long term (current) drug therapy
CPT/HCPCS: 36415; 80053; 80061; 80307; 81003; 82043; 82274; 82570; 82607; 84153; 84156; 84300; 84443; 86704; 86706; 86708; 86803; 87340

== ENCOUNTER 2025-02-07 10:55 | Outpatient (CLI) | payer MEDICAID ==
[2025-02-07 11:34] LABS: Potassium 5.1 mmol/L (3.5-5.1); Sodium 137 mmol/L (136-145)
[2025-02-07 11:35] LABS: Anion Gap 7 (5-15); Calcium 9.6 mg/dL (8.7-10.4); Carbon Dioxide 22 mmol/L (20-31)
[2025-02-07 11:36] LABS: Chloride 108 mmol/L (98-107)
[2025-02-07 11:40] LABS: BUN/Creatinine Ratio 19.5 (10.0-20.0)
[2025-02-07 11:42] LABS: Blood Urea Nitrogen 43 mg/dL (9-23); Glucose 169 mg/dL (74-106)
== END 2025-02-07 17:00 | disposition home or self-care (01) ==
LOC: LAB 10:55
PROVIDERS: ATTEND Internal Medicine
DX: N18.9 Chronic kidney disease, unspecified (principal); Z79.899 Other long term (current) drug therapy
CPT/HCPCS: 36415; 80048; 82306; 82607; 83036; 84100

== ENCOUNTER 2025-02-14 10:33 | Outpatient (CLI) | payer MEDICAID ==
[2025-02-14 11:40] LABS: Potassium 5.0 mmol/L (3.5-5.1)
[2025-02-14 11:49] LABS: Magnesium 2.6 mg/dL (1.6-2.6)
== END 2025-02-14 17:00 | disposition home or self-care (01) ==
LOC: LAB 10:33
PROVIDERS: ATTEND Internal Medicine
DX: E87.5 Hyperkalemia (principal)
CPT/HCPCS: 36415; 83735; 84132

== ENCOUNTER 2025-02-28 11:51 | Outpatient (CLI) | payer MEDICAID ==
[2025-02-28 12:42] LABS: Anion Gap 9 (5-15); Carbon Dioxide 22 mmol/L (20-31); Potassium 4.7 mmol/L (3.5-5.1); Sodium 139 mmol/L (136-145)
[2025-02-28 12:43] LABS: Calcium 9.7 mg/dL (8.7-10.4); Chloride 108 mmol/L (98-107)
[2025-02-28 12:48] LABS: BUN/Creatinine Ratio 17.6 (10.0-20.0); Magnesium 2.2 mg/dL (1.6-2.6)
[2025-02-28 12:49] LABS: Blood Urea Nitrogen 39 mg/dL (9-23); Glucose 185 mg/dL (74-106)
== END 2025-02-28 17:00 | disposition home or self-care (01) ==
LOC: LAB 11:51
PROVIDERS: ATTEND Internal Medicine
DX: E78.5 Hyperlipidemia, unspecified (principal)
CPT/HCPCS: 36415; 80048; 83735; 84100

== ENCOUNTER 2025-04-05 16:16 | Emergency (ER) | payer MEDICAID ==
[~2025-04-05] VITALS: Ht 154.9 cm; Wt 84.9 kg
--- NOTE | 2025-04-05 17:04 | ED.PDOC ---
History of Present Illness HPI Comments This is a 69 year old male BIB son presenting to the ED with chief complaint of abnormal labs. Son reports patient had blood work done today and later received a call from his PCP regarding his results. Son relays that the patient's Potassium was noted to be 6.2, advised to come to the ED for further evaluation and re-checking of his Potassium. Patient denies any N/V, SOB, chest pain, dizziness, headache, or syncope. Chief Complaint: Abnormal LAB's Time Seen by MD: 17:02 Primary Care Provider: ? Reviewed Notes: Nurses Notes, Medications, Allergies Allergies: Coded Allergies: NO KNOWN ALLERGIES (Unverified , 10/28/24) Home Meds Active Scripts Albuterol Sulfate (VENTOLIN MDI) 90 Mcg Ih, 90 MCG IN q4 hr PRN, #1 INH Prov:SUKH MORALES MD 11/22/24 Methylprednisolone (Medrol Dosepak) 4 Mg Erick, 4 MG PO UD, #21 TAB UAD Prov:SUKH MORALES MD 11/22/24 Levofloxacin Hemihydrate (LEVAQUIN 500 MG) 500 Mg Tab, 1 TAB PO DAILY, #7 TAB Prov:SUKH MORALES MD 11/22/24 Clindamycin Hcl (Clindamycin Hcl) 300 Mg Cap, 1 CAP PO TID, #21 CAP Prov:SUKH MORALES MD 11/03/24 Reported Medications Amlodipine Besylate (Amlodipine Besylate) 5 Mg Tab, 5 MG PO BID for BLOOD PRESSURE, TAB 10/28/24 Losartan Potassium (Losartan Potassium) 100 Mg Tab, 100 MG PO BID for BLOOD PRESSURE, TAB 10/28/24 Metformin Hydrochloride (Metformin Hcl) 500 Mg Tab, 500 MG PO DAILY for DIABETES, TAB 10/28/24 Information Source: Patient Mode of Arrival: Ambulatory Severity: Mild Timing: Hours Duration: Since onset Prehospital treatment: None Past Medical History PAST MEDICAL HISTORY: CKF, DM, HTN Surgical History: Hernia Repair Family History Family History: Reviewed,noncontributory to illness Social History Smoker: Non-Smoker Alcohol: Denies ETOH Use Drugs: Denies Drug Use Lives In: Home Constitutional: denies: chills, diaphoresis, fatigue, fever, malaise, sweats, weakness, others EENTM: denies: blurred vision, double vision, ear bleeding, ear discharge, ear drainage, ear pain, ear ringing, eye pain, eye redness, hearing loss, mouth pain, mouth swelling, nasal discharge, nose bleeding, nose congestion, nose pain, photophobia, tearing, throat pain, throat swelling, voice changes, others Respiratory: denies: cough, hemoptysis, orthopnea, SOB at rest, shortness of breath, SOB with excertion, stridor, wheezing, others Cardiovascular: denies: chest pain, dizzy spells, diaphoresis, Dyspnea on exertion, edema, irregular heart beat, left arm pain, lightheadedness, palpit ations, PND, syncope, others Gastrointestinal: denies: abdomen distended, abdominal pain, blood streaked b owels, constipated, diarrhea, dysphagia, difficulty swallowing, hematemesis, melena, nausea, poor appetite, poor fluid intake, rectal bleeding, rectal pain, vomiting, others Genitourinary: denies: burning, dysuria, flank pain, frequency, hematuria, incontinence, penile discharge, penile sore, pain, testicle pain, testicle swelling, urgency, others Neurological: denies: dizziness, fainting, headache, left sided numbness, left sided weakness, numbness, paresthesia, pre-existing deficit, right sided numbness, right sided weakness, seizure, speech problems, tingling, tremors, weakness, others Musculoskeletal: denies: back pain, gout, joint pain, joint swelling, muscle pain, muscle stiffness, neck pain, others Integumetry: denies: bruises, change in color, change in hair/nails, dryness, laceration, lesions, lumps, rash, wounds, others Allergic/Immunocompromised: denies: Difficulty Healing, Frequent Infections, Hives, Itching, others Hematologic/Lymphatic: denies: anemia, blood clots, easy bleeding, easy bruisi ng, swollen glands, others Endocrine: denies: excessive hunger, excessive sweating, excessive thirst, exce ssive urination, flushing, intolerance to cold, intolerance to heat, unexplained weight gain, unexplained weight loss, others Psychiatric: denies: anxiety, bipolar disorder, depression, hopeless, panic disorder, schizophrenia, sleepless, suicidal, others All Other Systems: Reviewed and Negative Physical Exam General Appearance: No Apparent Distress HEENT: Normal ENT Inspection, Pharynx Normal, TMs Normal Neck: Full Range of Motion, Non-Tender, Normal, Normal Inspection Respiratory: Chest Non-Tender, Lungs Clear, No Accessory Muscle Use, No Respiratory Distress, Normal Breath Sounds Cardiovascular: No Edema, No JVD, No Murmur, No Gallop, Normal Peripheral Pulses, Regular Rate/Rhythm Breast Exam: Deferred Gastrointestinal: No Organomegaly, Non Tender, No Pulsatile Mass, Normal Bowel Sounds, Soft Genitalia: Deferred Pelvic: Deferred Rectal: Deferred Extremities: No calf tenderness, Normal capillary refill, Normal inspection, Normal range of motion, Non-tender, No pedal edema Musculoskeletal : Apperance: Normal Neurologic: Alert, preschool assistant II-XII nml as Tested, No Motor Deficits, Normal Affect, Normal Mood, No Sensory Deficits Cerebellar Function: Normal Reflexes: Normal Skin: Dry, Normal Color, Warm Lymphatic: No Adenopathy Was a procedure done? Was a procedure done?: No Differential Dx Considerations may include: Hyperkalemia X-Ray, Labs, Meds, VS Vital Signs Date Time Temp Pulse Resp B/P (MAP) Pulse Ox O2 Delivery O2 Flow Rate FiO2 04/05/25 16:36 98 04/05/25 16:18 98.0 104 16 122/72 94 98.0 Lab Test 04/05/25 16:49 Range/Units White Blood Count 8.2 4.4-10.8 10^3/uL Red Blood Count 5.76 4.5-5.90 10^6/uL Hemoglobin 16.9 13.5-17.5 g/dL Hematocrit 50.1 41.0-53.0 % Mean Corpuscular Volume 87.0 80.0-100.0 fL Mean Corpuscular Hemoglobin 29.4 28.0-32.0 pg Mean Corpuscular Hemoglobin Concent 33.8 32.0-36.0 g/dL Red Cell Distribution Width 13.9 11.8-14.3 % Platelet Count 220 140-450 10^3/uL Mean Platelet Volume 7.4 6.9-10.8 fL Neutrophils (%) (Auto) 60.3 37.0-80.0 % Lymphocytes (%) (Auto) 28.5 10.0-50.0 % Monocytes (%) (Auto) 8.4 0.0-12.0 % Eosinophils (%) (Auto) 2.2 0.0-7.0 % Basophils (%) (Auto) 0.6 0.0-2.0 % Neutrophils # (Auto) 4.9 1.6-8.6 10 ^3/uL Lymphocytes # (Auto) 2.3 0.4-5.4 10 ^3/uL Monocytes # (Auto) 0.7 0-1.3 10 ^3/uL Eosinophils # (Auto) 0.2 0-0.8 10 ^3/uL Basophils # (Auto) 0 0-0.2 10 ^3/uL Nucleated Red Blood Cells 0.2 % Sodium Level 141 136-145 mmol/L Potassium Level 5.0 3.5-5.1 mmol/L Chloride Level 110 H 98-107 mmol/L Carbon Dioxide Level 20 20-31 mmol/L Anion Gap 11 5-15 Blood Urea Nitrogen 24 H 9-23 mg/dL Creatinine 2.28 H 0.700-1.30 mg/dL Glomerular Filtration Rate Calc 30 >90 mL/min BUN/Creatinine Ratio 10.5 10.0-20.0 Serum Glucose 202 H 74-106 mg/dL Calcium Level 9.1 8.7-10.4 mg/dL The patient's CBC is within normal limits The chemistry panel shows a potassium of 5.0 The BUN is 24 and the creatinine is 2.28 The patient is being discharged The patient will follow up with the primary care doctor The patient will return to the emergency department's condition worsens. At this time, the patient's potassium was read as 6.2 earlier but because of the range the patient is being safely discharged. Time of 1ST Reevaluation: 17:31 Reevaluation 1ST: Unchanged Patient Education/Counseling: Diagnosis, Treatment, Prognosis, Need For Follow Up Family Education/Counseling: Diagnosis, Treatment, Prognosis, Need For Follow Up SEPSIS Sepsis Screen Date sepsis recognized/suspect: Apr 05, 2025 Time Sepsis recognized/suspect: 8 Recent Procedure: No On Antibiotic Therapy: No Respiratory Rate >20: No Heart Rate >90: No Temp<36 C (96.8 F) or >38.3 C: No SBP <90 or MAP <65 mmHG: No New Acute Mental Status Change: No Is the patient on CPAP, BIPAP,: No Physician Orders Urinalysis (04/05/25 16:36) Heplock Iv (04/05/25 16:36) Electrocardigram (04/05/25 16:43) Vital Signs Date Time Temp Pulse Resp B/P (MAP) Pulse Ox O2 Delivery O2 Flow Rate FiO2 04/05/25 16:36 98 04/05/25 16:18 98.0 104 16 122/72 94 98.0 Laboratory Tests Test 04/05/25 16:49 White Blood Count 8.2 10^3/uL (4.4-10.8) Departure 1 Departure Time of Disposition: 17:31 Impression: Primary Impression: Acute renal insufficiency Disposition: 01 HOME / SELF CARE / HOMELESS Condition: Fair Discharged With: Self Critical Care Note Critical Care Time?: No Stability Stability form required: No Heart Score Heart Score: Heart Score Response (Comments) Value History N/A 0 EKG N/A 0 Age N/A 0 Risk Factors N/A 0 Troponin N/A 0 Total 0 I personally scribed for KRISTOPHER FONTANA MD ([email or web address]) on 04/05/25 at 17:04. Electronically submitted by George Montes De Oca ([email or web address]). KRISTOPHER FONTANA MD Apr 05, 2025 17:04
[2025-04-05 17:05] LABS: Hematocrit 50.1 % (41.0-53.0); Hemoglobin 16.9 g/dL (13.5-17.5); Mean Corpuscular Hemoglobin 29.4 pg (28.0-32.0); Mean Corpuscular Volume 87.0 fL (80.0-100.0); Nucleated Red Blood Cells % 0.2 %
[2025-04-05 17:13] LABS: Potassium 5.0 mmol/L (3.5-5.1); Sodium 141 mmol/L (136-145)
[2025-04-05 17:14] LABS: Anion Gap 11 (5-15)
[2025-04-05 17:15] LABS: Calcium 9.1 mg/dL (8.7-10.4); Carbon Dioxide 20 mmol/L (20-31); Chloride 110 mmol/L (98-107)
[2025-04-05 17:19] LABS: BUN/Creatinine Ratio 10.5 (10.0-20.0)
[2025-04-05 17:21] LABS: Blood Urea Nitrogen 24 mg/dL (9-23); Glucose 202 mg/dL (74-106)
[2025-04-05 18:59] VITALS: BP 123/74; PULSE 87; RESP 18; TEMP 97.9; O2SAT 94
--- NOTE | 2025-04-05 19:03 | ECG ---
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
== END 2025-04-05 19:01 | disposition home or self-care (01) ==
LOC: ER 16:19
DX: N28.9 Disorder of kidney and ureter, unspecified (principal); I11.0 Hypertensive heart disease with heart failure; I50.9 Heart failure, unspecified; E11.9 Type 2 diabetes mellitus without complications; Z79.84 Long term (current) use of oral hypoglycemic drugs; Z79.899 Other long term (current) drug therapy; Z98.890 Other specified postprocedural states
CPT/HCPCS: 36415; 80048; 85025; 93005

== ENCOUNTER → 2025-04-05 | Outpatient (CLI) | payer MEDICAID ==
[2025-04-05 13:18] LABS: Alanine Aminotransferase 28 U/L (7-40); Albumin 4.3 g/dL (3.2-4.8); Alkaline Phosphatase 108 U/L (46-116); Anion Gap 5 (5-15); BUN/Creatinine Ratio 11.7 (10.0-20.0); Bilirubin, Total 0.4 mg/dL (0.2-1.0); Calcium 9.4 mg/dL (8.7-10.4); Carbon Dioxide 25 mmol/L (20-31); Sodium 139 mmol/L (136-145); Total Protein 7.3 g/dL (5.7-8.2)
[2025-04-05 14:59] LABS: Blood Urea Nitrogen 27 mg/dL (9-23); Chloride 109 mmol/L (98-107); Glucose 267 mg/dL (74-106)
[2025-04-05 15:17] LABS: Potassium 6.2 mmol/L (3.5-5.1)
== END | disposition home or self-care (01) ==
LOC: LAB 12:44
PROVIDERS: ATTEND Internal Medicine
DX: E11.22 Type 2 diabetes mellitus with diabetic chronic kidney disease (principal); N18.30 Chronic kidney disease, stage 3 unspecified
CPT/HCPCS: 36415; 80053